=== PATIENT | male | born 1945 | race Caucasian/White ===

== ENCOUNTER → 2018-07-31 12:34 | Outpatient (CLI) | payer MEDICARE, OTHER, SELFPAY ==
--- NOTE | 2018-07-31 12:39 | DI.RAD.S_ITS ---
PROCEDURE: XR CHEST 2V INDICATIONS: COUGH TECHNIQUE: 2 views of the chest were acquired. COMPARISON: [facility], , CHEST 1 VIEW, 03/08/2015, 5:09. FINDINGS: Surgical changes and devices: None. Lungs and pleura: Lungs are clear. No pleural effusions or pneumothorax. Mediastinum: Mediastinal contours are normal. Heart size is mildly prominent. Bones and chest wall: No suspicious bony abnormalities. Soft tissues appear unremarkable. IMPRESSION: No acute pulmonary process. Dictated by: Nicole Balderas M.D. on 07/31/2018 at 15:43 Approved by: Nicole Balderas M.D. on 07/31/2018 at 15:43
== END ==
PROVIDERS: PCP Family Medicine; Visit Provider Family Medicine
DX: R05 Cough (principal)
CPT/HCPCS: 71046

== ENCOUNTER 2018-10-19 06:06 | Inpatient (IN) | payer MEDICARE, OTHER, SELFPAY ==
[2018-10-11 08:19] VITALS: BMI 37.0
[2018-10-19] VITALS (17 sets, daily range): BP systolic 124–181; BP diastolic 58–87; PULSE 64–84; RESP 10–20; TEMP 36.1–37.2; O2SAT 92–98; BMI 35.7
--- NOTE | 2018-10-19 | DI.RAD.S_ITS ---
PROCEDURE: XR CERVICAL SPINE 2V OR 3V INDICATIONS: C3-4, 4-5, 5-6 ACDF WITH POSTERIOR FUSION TECHNIQUE: 2 view(s) of the cervical spine were acquired. COMPARISON: None. FINDINGS: Bones: Postsurgical changes compatible with C3-C6 ACDF and facet spacer placement noted. Orthopedic hardware is intact. No lucencies at the bone hardware interface. There is normal alignment and curvature the fused and nonfused cervical vertebral bodies. Soft tissues: No prevertebral soft tissue swelling. IMPRESSION: Expected postsurgical change for C3-C6 ACDF with cervical spacer placement. Dictated by: Joanne Stanford MD, PhD on 10/19/2018 at 15:12 Approved by: Joanne Stanford MD, PhD on 10/19/2018 at 15:14
[2018-10-19] MEDS: LACTATED RINGERS 1,000 ML 42 ML IV ×2 (07:20→10:07)
--- NOTE | 2018-10-19 07:27 | PC.NURSE ---
Day shift: Pt not on AC unit at this time.
--- NOTE | 2018-10-19 07:41 | PM.PREOP ---
Pre-operative Note Interval Note History & Physical reviewed/Exam performed by Physician: Yes Changes to H&P: No
[2018-10-19] MEDS: CEFAZOLIN 2 GM/100 ML FROZ.PIGGY IV ×2 (07:52→16:47)
--- NOTE | 2018-10-19 08:38 | SUR.OPER ---
Prone on padded OR bed, head in foam head support, gel chest rolls, gel pad under knees, pillow under lower legs, toes free of pressure, arms at patients sides and secured with draw sheet. Tape applied from bilateral shoulders to end of bed with traction per surgeon. Safety belt at low back.
[2018-10-19] MEDS: BUPIVACAINE 0.25% W/ EPI 30 ML VIAL 60 ML INJ (08:50)
[2018-10-19] MEDS: SODIUM CHLORIDE 0.9% 1,000 ML, GENTAMICIN 80 MG IRR (08:52)
[2018-10-19] MEDS: THROMBIN (RECOMBINANT) 5,000 UNIT VIAL 5000 UNIT TOP (10:08)
--- NOTE | 2018-10-19 10:29 | SUR.OPER ---
Supine, head on gel donut. Arms padded with gel pads, tucked at sides, towel roll under shoulders. Safety belt at thigh. Legs uncrossed.
[2018-10-19] MEDS: ACETAMINOPHEN IV 1,000 MG/100 ML VIAL 400 MG IV (10:55)
--- NOTE | 2018-10-19 11:40 | PM.OP.1 ---
Operative Date/Time/Diagnoses Date of procedure: 10/19/18 Time of procedure: 11:40 Pre-op diagnosis: Cervical stenosis with myelopathy Post-op diagnosis: same Procedure & Clinicians Procedure: C3-4, C4-5, C5-6 anterior cervical diskectomy and fusion with cages C3-4, C4-5, C5-6 posterior cervical fusion C3 through C6 posterior cervical instrumentation Iliac crest bone graft aspirate Use of microscope Same procedure as scheduled: Yes Indications: [age] year old male with intractable symptoms from stenosis and myelopathy. They had failed conservative management and requested operative intervention. Risks and benefits of surgery were discussed and appropriate consents were obtained. Surgeon: Fabián Goldman Qualitative Field Coordinator: Yocasta Haley Anesthesia Type: General Operative Notes Findings: None Closure Type: primary Specimen(s): none sent Prosthetic devices, grafts, tissues, transplants, or devices: [place] DTrax posterior cages and screws Zachary MELISSA-C anterior cages Applied: catheter Estimated Blood Loss (mL): 10 Procedure in detail: The patient was brought to the operating room and intubated on the stretcher. Time-out was performed. There were then rolled over to the well-padded prone position on chest rolls. Two views of fluoroscopy were taken to confirm our positioning. The neck was then prepped and draped in the standard sterile fashion. Preoperative antibiotics were given. Using fluoroscopy, we localized for planned incisions. Two small 8 mm horizontal incisions were made over the lateral masses approximately 2 fingers below our planned surgical site. We then spread down and opened up the fascia. Then percutaneously placed our Steinmann pin through the soft tissue into the facet joint at C3-4 under fluoroscopic visualization. We used the reamer to decorticate the lateral masses compromising the facet. A trocar was placed over the Steinmann pin into the facet and then the pin was removed. We used a rasp to decorticate the facet joint itself. We then filled the DTrax cage with Progenex bone graft and impacted it into the facet joint at C3-4 under fluoroscopic guidance. We then took the lateral mass screw and placed it through the cage and then into the lateral mass for the posterior screw fixation. The property management intern was removed and we packed more bone graft down the trocar covering the lateral mass. This was done bilaterally. This completed the instrumented posterior fusion at C3-4. We then went to the next levels at C4-5 and C5-6. The same procedure was performed with preparation, placement of the cage with bone graft, and placement of the screw for bilateral instrumented posterior fusion at C4-5 and C5-6. The wounds were irrigated. The skin was closed and a sterile dressing placed. The patient was then rolled over to the table in the supine position and positioned for the anterior surgery. The arms were tucked and a shoulder roll was placed. The neck and left iliac crest were prepped and draped in the standard sterile fashion. A 3 cm oblique incision was made on the left side of the neck along the skin fold. Bovie was used to split the platysma. We then bluntly dissected a standard anterolateral approach to the precervical fascia. A marker was placed and x-ray taken to confirm our positioning. We then used the Bovie to the subperiosteally lift up the longus colli muscles. Self-retaining retractors were placed. We then placed Albers pins and distracted across the C3-4 disc space. We brought in the microscope. A complete anterior discectomy was performed at C3-4 using a combination of scalpel, curettes, pituitaries, and Kerrison rongeurs. The bur was used to take down the posterior osteophytes as well as decorticate the disc space. We then released the PLL and used the Kerrison to remove any further posterior osteophytes and disc material. At the end a nerve hook could be swept cephalad caudally and out the neural foramen and everything was open. We trialed for our cages. A small stab incision was made over the left iliac crest. We placed a Jamshidi aspiration needle into the iliac crest and aspirated several mL of bone marrow graft. We then took our Zachary LDR MELISSA-C cage and packed it with Progenex, and mixed in the bone marrow aspirate. The cage was then placed into the disc space under fluoroscopic guidance. The 2 locking plates were placed through the cage for fixation. This completed the ACDF at C3-4. We then went to the next level at C4-5 and then C5-6. Again a complete diskectomy was performed including taking down the PLL and posterior osteophytes and disc material. The endplates were prepped with a bur. We trialed and then packed our MELISSA-C cage with the bone graft and then placed into the disc space. The locking plates were placed as well. The superior plate at C5-6 did not go all the way in and bent and was still protruding approximately 1 mm past the cage. The middle section was removed and then we were able to impact in the rest. We then were able to place the inferior plate. This completed the ACDF at C4-5 and C5-6. Final x-rays were taken. The wound was copiously irrigated. There was no bleeding. The carotid was bleeding nicely. The platysma was closed. The superficial skin were closed. A Steri-Strip was placed over the iliac crest incision. Sterile dressings were placed. The patient was then extubated and brought to the recovery room without complication. Complications: none Condition: stable Disposition: PACU Plan for aftercare: Inpatient. Up with therapy.
[2018-10-19] MEDS: hydrOXYzine 50 MG/ML INJ 25 MG IM (12:40)
[2018-10-19] MEDS: HYDROMORPHONE 2 MG INJ 0.5 MG IV ×2 (12:42→12:48)
[2018-10-19] MEDS: LACTATED RINGERS 1,000 ML 125 ML IV (14:52)
--- NOTE | 2018-10-19 14:54 | PT.IIE ---
Current Diagnoses Obstructive sleep apnea (adult) (pediatric) (10/19/18) Unspecified cord compression (10/19/18) Strain of muscle, fascia and tendon at neck level, subsequent encounter (10/19/18) Surgery Performed Operation Date: 10/19/18 07:45 Actual Procedures p C3-4,C4-5,C5-6 Anterior discectomy & Ant/Post Instru. fusion & bone graft - Fabián Goldman MD Surgical History (Last Updated 10/11/18 @ 09:24 by Joanne Navarrete RN) H/O: vasectomy (Acute ~1971) History of arthroscopy of both shoulders (Acute) History of carpal tunnel surgery of right wrist (Acute) Hx of cervical spine surgery (Acute) Hx of hand surgery (Acute) Hx of lumbar discectomy (Acute ~2003) Hx of lumbar discectomy (Acute ~2010) Hx of lumbar discectomy (Acute ~2014) Hx of right inguinal hernia repair (Acute ~1983) S/P foot surgery, right (Acute ~2014) Status post trigger finger release (Acute) Medical History (Last Updated 10/11/18 @ 09:24 by Joanne Navarrete RN) Asthma (Acute) CAD (coronary artery disease) (Acute) CHF (congestive heart failure) (Acute ~2014) CVA (cerebral vascular accident) (Acute ~2010) Cervical radiculopathy (Acute) Chronic back pain (Acute) DJD (degenerative joint disease) (Acute) Depression (Acute) Diverticulitis (Acute) Diverticulosis (Acute) Former smoker (Acute) HLD (hyperlipidemia) (Acute) HTN (hypertension) (Acute) Paroxysmal A-fib (Acute) Pulmonary edema (Acute) Sleep apnea treated with nocturnal BiPAP (Acute) Type II diabetes mellitus (Acute) Physical Therapy Inpatient Evaluation/Re-Eval M1 PT/OT-IP Prior Functional Status Start: 10/19/18 17:34 Freq: NEEDED Status: Active Protocol: Document 10/19/18 14:54 AB (Rec: 10/19/18 17:55 AB [id number]) Medical Review Prior Functional Status Medical History Reviewed Yes Communication able to make needs known Mobility and Gait per spouse: pt is independent with all mobilities and ambulation without AD Social History Household Members spouse Living Arrangements Mobile home Number of Floors (Floors) One Floor Number of Stairs To Enter/Railing? 4 steps R rail ascending Home Environment Standard Height Toilet Walk in Shower Home Equipment Front Wheel Walker Shower Seat with Backrest Hand Held Shower Respiratory Care Assistant Sock Aid Employment Status Retired Additional Social History Comment spouse stated that they positioned a walker towards the back of toilet seat to assist them to push up from the toilet. M2 PT-IP Current Condition Start: 10/19/18 17:34 Freq: NEEDED Status: Active Protocol: Document 10/19/18 14:54 AB (Rec: 10/19/18 17:55 AB [id number]) Physical Therapy Current Condition Current Condition Evaluation Date 10/19/18 Treatment Diagnosis s/p C3-6 anterior and posterior fusion; difficulty in walking Onset Date 10/19/18 Precautions Cervical Spine Precautions Soft Collar for Comfort No Heavy Lifting Log Roll M3 PT-IP Subjective Start: 10/19/18 17:34 Freq: NEEDED Status: Active Protocol: Document 10/19/18 14:54 AB (Rec: 10/19/18 17:55 AB [id number]) Subjective Physical Therapy Visit Type Type Initial Evaluation Visit Start Time 14:54 Visit Stop Time 15:29 Total Visit Minutes 35 Number of PRESCHOOL DIRECTOR Visits 0 Physical Therapy Visit Comments Patient Comments pt c/o increase but wants to try to get up Therapy Pain Assessment Pain When Pain Assessed At Rest Pain Present Pain Present Pain Reported Location neck Intensity 5 Scale Used Numeric (1 - 10) Pain Management Techniques Re-positioning Timing of Activity with Medications M4 PT-IP Mobility and Gait Start: 10/19/18 17:34 Freq: NEEDED Status: Active Protocol: Document 10/19/18 14:54 AB (Rec: 10/19/18 17:55 AB [id number]) PT-Bed Mobility Assessment Rolling Type of Rolling Log Rolling Level of Assist Standby Assistance Supine to Sit Supine to Sit Maximum Assistance PT-Transfer Assessment Sit to and From Stand Sit to and from Stand Moderate Assistance 1 Person Assistance Use of Upper Extremities Equipment Transfer Assistive Device Gait Belt Front Wheeled Walker Orthotic/Prosthetic Devices or Brace: Yes Transfers Transfer Destination Chair Transfer Technique pt ambulated using FWW Transfer Ability Level of Assist Moderate Assistance 1 Person Assistance Use of Upper Extremities Comments Mobility Comments pt completed supine to sit log roll max A and cues. pt was able to sit on EOB SBA. completed sit to stand mod A and cues and was able to ambulate ~ 3 ft forward and back using FWW mod A. pt agreed to sit up on chair and ambulated towards the chair using FWW. Gait Assessment Gait Gait Assistance Required: Moderate Assistance Distance (Feet) 12 Able to Maintain Weight Bearing Status Yes During Gait Assistive Devices Assistive Device Gait Belt Front Wheeled Walker Orthotic/Prosthetic Devices or Brace: Yes Gait Deviations General Gait Pattern Antalgic Decreased Stride Length Decreased Feet Clearance Wide Based Gait Factors Limiting Gait Function Factors Limiting Gait Function Decreased Activity Tolerance Decreased Strength Difficulty Following Directions Limited Range of Motion Pain Poor Balance Poor Safety Awareness Comments Gait Comments pt presents with a waddling gait with decrease step length and slow simone. PT-Balance Assessment Sitting Balance and Reactions Static Sitting Balance Ability Good Dynamic Sitting Balance Ability Good Standing Balance and Reactions Static Standing Balance Ability Fair Dynamic Standing Balance Ability Fair Device Used FWW M5 PT-IP Objective Assessments Start: 10/19/18 17:34 Freq: NEEDED Status: Active Protocol: Document 10/19/18 14:54 AB (Rec: 10/19/18 17:55 AB [id number]) Orientation Orientation/Cognition Level of Alertness Alert Orientation Name Place Situation Language Function Ability Hard of Hearing Gross Range of Motion Lower Extremity ROM Assessment Within Functional Limits Strength Lower Extremity Strength Assessment Within Functional Limits Coordination Assessment Gross Coordination Gross Coordination WNL Sensation Assessment Sensation Gross Sensation WNL Muscle Tone Muscle Tone WNL Yes M6 PT-IP Treatment Start: 10/19/18 17:34 Freq: NEEDED Status: Active Protocol: Document 10/19/18 14:54 AB (Rec: 10/19/18 17:55 AB [id number]) Physical Therapy Treatment Education Education Provided Precautions Weight Bearing Status Post-Op Packet Safety Other Treatments Other Treatment Performed reviewed precautions and log roll bed mobility M7 PT-IP Assessment and Plan Start: 10/19/18 17:34 Freq: NEEDED Status: Active Protocol: Document 10/19/18 14:54 AB (Rec: 10/19/18 17:55 AB [id number]) PT Summary Assessment and Plan Potential Rehabilitation Potential Good Status of Condition at Evaluation Evolving Summary Impairments Pain ROM Strength Balance Coordination Sensation Tone Cognition Bed Mobility Transfers Gait Activity Tolerance Assessment Summary pt requiring max A with bed mobility and mod A with ambulation using FWW. d/c plan depending if spouse will be able to safely assist pt. will conduct caregiver training when appropriate and complete stair climbing training prior to d/c. will have to continue to assess for safe d/c plan. Goals Bed Mobility Goal Standby Assistance Transfer Goal Standby Assistance Front Wheeled Walker Gait Goal Standby Assistance Front Wheel Walker Gait Distance 200 Other Goals up/down 4 steps R rail ascending CGA Days to Meet Goals 5 Frequency of Treatment Frequency Of Treatment Twice a Day Treatment Plan Physical Therapy Treatment Plan Bed Mobility Training Transfer Training Gait Training Therapeutic Exercise Balance Retraining Post Op Education Discharge Planning Hot or Cold Pack Neuromuscular Re-ed Coordination Retraining Manual Therapy Recommendations To Nursing Amount of Assist Needed 1 Person Assist Discharge Recommendations PT Discharge Recommendations Home with 05/01 Assist Home Health SNF Rehab Other Discharge Recommendations depending on progress: SNF vs home and homehealth services
[2018-10-19] MEDS: HYDROMORPHONE 0.5 MG INJ IV ×2 (15:01→19:56)
--- NOTE | 2018-10-19 16:39 | ST.IPSCREEN ---
Order received for swallow screen post ACDF. Pt had just come to room from PACU. Pt asleep. Will F/U tomorrow.
[2018-10-19] MEDS: OXYCODONE IR 5 MG TABLET 10 MG PO ×2 (16:41→22:22)
[2018-10-19] MEDS: INSULIN ASPART 100 UNIT/ML INSULN PEN SUBCUT (17:24)
[2018-10-19] MEDS: hydrOXYzine pamoate 25 MG CAPSULE PO (19:58)
[2018-10-19] MEDS: buPROPion SR 150 MG TAB PO (22:11)
[2018-10-19] MEDS: ATORVASTATIN 20 MG TABLET 80 MG PO (22:11)
[2018-10-19] MEDS: DOCUSATE 100 MG CAPSULE PO (22:12)
[2018-10-19] MEDS: CELECOXIB 200 MG CAPSULE PO (22:12)
[2018-10-19] MEDS: FENOFIBRATE 160 MG TABLET PO (22:13)
[2018-10-19] MEDS: METOPROLOL IR 50 MG TABLET PO (22:23)
[2018-10-19] MEDS: INSULIN GLARGINE 100 UNIT/ML 3ML PEN 70 UNIT SUBCUT (22:24)
[2018-10-19] MEDS: SENNOSIDES 8.6 MG TABLET 17.2 MG PO (22:50)
[2018-10-19] MEDS: LISINOPRIL 20 MG TABLET PO (22:50)
--- NOTE | 2018-10-19 22:55 | PC.NURSE ---
Pt alert/oriented. Soft collar in place. Posterior dsg w/some dried drainage noted. Front dsg CDI. Pt having pain issues this evening. Med several times w/oxycodone ans dilaudid as per orders w/minimal relief. IV LR @ 125cc/Hr infusing via pump into the RFA w/o incidnece Lungs clear, SpO2 96% 2L. Stable post op course. Continue w/plan of care
[2018-10-20] VITALS (9 sets, daily range): BP systolic 124–136; BP diastolic 59–76; PULSE 67–83; RESP 16–18; TEMP 36.6–37.2; O2SAT 91–99
[2018-10-20] MEDS: LACTATED RINGERS 1,000 ML 125 ML IV (01:06)
[2018-10-20] MEDS: CEFAZOLIN 2 GM/100 ML FROZ.PIGGY IV (01:06)
[2018-10-20] MEDS: hydrOXYzine pamoate 25 MG CAPSULE PO ×4 (01:06→23:51)
[2018-10-20] MEDS: HYDROMORPHONE 0.5 MG INJ IV ×3 (01:06→23:51)
[2018-10-20] MEDS: ONDANSETRON 4 MG/2 ML INJ IV (01:10)
[2018-10-20] MEDS: OXYCODONE IR 5 MG TABLET 10 MG PO ×4 (02:35→14:15)
--- NOTE | 2018-10-20 08:00 | PM.PNPO.1 ---
Subjective Date Patient Seen: 10/20/18 Time Patient Seen: 08:00 Interval history: Having a fair amount of pain at the base of the neck and over towards the right shoulder. No pain going down the arms Exam Vital Signs (past 8 hours): - 10/20/18 05:25 Temperature 98.9 F Pulse Rate 83 Respiratory Rate 16 Blood Pressure 131/59 L Pulse Oximetry 96 Oxygen Delivery Method Room Air Oxygen Flow Rate 0 Const Orientation: alert and oriented x3 Back/Spine/Pelvis Other: Anterior dressing CDI. Moderate drainage on posterior dressing. 5/5 motor both upper extremities. Assessment & Plan Post-op Postoperative Procedures Operation Date: 10/19/18 07:45 Actual Procedures Side Surgeon p C3-4,C4-5,C5-6 Anterior discectomy & Ant/Post Instru. fusion & bone graft Fabián Goldman MD He is stable after his 3 level from back cervical fusion. Mobilize today with physical therapy. Anticipate probable discharge home tomorrow. Quality VTE Deep Vein Thrombosis/Pulmonary Embolism Present on Admission: No
[2018-10-20] MEDS: INSULIN ASPART 100 UNIT/ML INSULN PEN 35 UNIT SUBCUT ×2 (08:23→14:07)
[2018-10-20] MEDS: INSULIN ASPART 100 UNIT/ML INSULN PEN SUBCUT (08:25)
[2018-10-20] MEDS: buPROPion SR 150 MG TAB PO ×2 (08:31→21:08)
[2018-10-20] MEDS: LISINOPRIL 20 MG TABLET PO ×2 (08:31→21:09)
[2018-10-20] MEDS: DOCUSATE 100 MG CAPSULE PO ×2 (08:31→21:08)
[2018-10-20] MEDS: CELECOXIB 200 MG CAPSULE PO ×2 (08:31→21:08)
[2018-10-20] MEDS: METOPROLOL IR 50 MG TABLET PO ×2 (08:34→21:08)
[2018-10-20] MEDS: LORATADINE 10 MG TABLET PO (08:34)
--- NOTE | 2018-10-20 10:36 | PT.IPTN ---
Current Diagnoses Obstructive sleep apnea (adult) (pediatric) (10/19/18) Unspecified cord compression (10/19/18) Strain of muscle, fascia and tendon at neck level, subsequent encounter (10/19/18) Surgery Performed Operation Date: 10/19/18 07:45 Actual Procedures p C3-4,C4-5,C5-6 Anterior discectomy & Ant/Post Instru. fusion & bone graft - Fabián Goldman MD Physical Therapy Treatment Note M2 PT-IP Current Condition Start: 10/19/18 17:34 Freq: NEEDED Status: Active Protocol: Document 10/19/18 14:54 AB (Rec: 10/19/18 17:55 AB [id number]) Physical Therapy Current Condition Current Condition Evaluation Date 10/19/18 Treatment Diagnosis s/p C3-6 anterior and posterior fusion; difficulty in walking Onset Date 10/19/18 Precautions Cervical Spine Precautions Soft Collar for Comfort No Heavy Lifting Log Roll M3 PT-IP Subjective Start: 10/19/18 17:34 Freq: NEEDED Status: Active Protocol: Document 10/20/18 10:25 SA (Rec: 10/20/18 10:36 SA [id number]) Subjective Physical Therapy Visit Type Type Treatment Note Visit Start Time 09:42 Visit Stop Time 10:10 Total Visit Minutes 28 Notes Pt with present for PT. Number of COMMUNICATIONS SPECIALIST Visits 1 Physical Therapy Visit Comments Patient Comments Pt reports decreased cervical pain today, agreeable to PT. Patient Goals To return home with . Therapy Pain Assessment Pain When Pain Assessed During Mobility Pain Present Pain Present Pain Reported Location neck Intensity 2 Scale Used Numeric (1 - 10) Pain Management Techniques Re-positioning Timing of Activity with Medications M4 PT-IP Mobility and Gait Start: 10/19/18 17:34 Freq: NEEDED Status: Active Protocol: Document 10/20/18 10:25 SA (Rec: 10/20/18 10:36 SA [id number]) PT-Transfer Assessment Sit to and From Stand Sit to and from Stand Minimal Assistance Use of Upper Extremities Equipment Transfer Assistive Device Gait Belt Front Wheeled Walker Orthotic/Prosthetic Devices or Brace: Yes Transfers Transfer Destination Bed Chair Transfer Technique pt ambulated using FWW Transfer Ability Level of Assist Contact Guard Assistance 1 Person Assistance Comments Mobility Comments Repeated sit to stands from chair with Min A - CGA. Pt transfers with FWW and CGA, Soft collar in place and education for precautions and safety. Gait Assessment Gait Gait Assistance Required: Contact Guard Assist 1 Person Assist Distance (Feet) 60 Able to Maintain Weight Bearing Status Yes During Gait Assistive Devices Assistive Device Gait Belt Front Wheeled Walker Orthotic/Prosthetic Devices or Brace: Yes Gait Deviations General Gait Pattern Antalgic Decreased Stride Length Factors Limiting Gait Function Factors Limiting Gait Function Decreased Activity Tolerance Decreased Strength Comments Gait Comments Pt with impoved gait quality and decreased pain levels. Several short walks of 15-20 feet, pt able to manage FWW safely and increased step length, CGA provided and no LOB. Stair Climbing Assessment Evaluation Level of Assist On Stairs Contact Guard Assistance Devices Stair Climbing Assistive Devices Left Railing Right Railing Technique/Endurance Stair Climbing Direction Ascend and Descend Stair Climbing Technique Step Over Step Number of Steps Climbed 3 Query Text: Stair Climbing Set # Repetitions (reps) 1 Comments Stair Climbing Comments Pt with step through gait pattern and use of B rails, CGA and min cues for safe technique. M5 PT-IP Objective Assessments Start: 10/19/18 17:34 Freq: NEEDED Status: Active Protocol: Document 10/19/18 14:54 AB (Rec: 10/19/18 17:55 AB [id number]) Orientation Orientation/Cognition Level of Alertness Alert Orientation Name Place Situation Language Function Ability Hard of Hearing Gross Range of Motion Lower Extremity ROM Assessment Within Functional Limits Strength Lower Extremity Strength Assessment Within Functional Limits Coordination Assessment Gross Coordination Gross Coordination WNL Sensation Assessment Sensation Gross Sensation WNL Muscle Tone Muscle Tone WNL Yes M6 PT-IP Treatment Start: 10/19/18 17:34 Freq: NEEDED Status: Active Protocol: Document 10/20/18 10:25 SA (Rec: 10/20/18 10:36 [id number]) Physical Therapy Treatment Exercises Exercises Ankle Pumps Gluteal Sets Education Education Provided Precautions Weight Bearing Status Post-Op Packet Safety Other Treatments Other Treatment Performed 02 sats ranged from 87-93% on RA with activity. Pt recovered quickly with 02 dropping to 87% with ambulaiton. M7 PT-IP Assessment and Plan Start: 10/19/18 17:34 Freq: NEEDED Status: Active Protocol: Document 10/20/18 10:25 SA (Rec: 10/20/18 10:36 [id number]) PT Summary Assessment and Plan Summary Assessment Summary Pt progressing well with gait and stair management. 02 levels safe on RA with activity. present and helpful during treatment, anticipate d/c home with spouse to assist. Frequency of Treatment Frequency Of Treatment Twice a Day Treatment Plan Physical Therapy Treatment Plan Bed Mobility Training Transfer Training Gait Training Therapeutic Exercise Balance Retraining Post Op Education Discharge Planning Hot or Cold Pack Neuromuscular Re-ed Coordination Retraining Manual Therapy Recommendations To Nursing Amount of Assist Needed 1 Person Assist Discharge Recommendations PT Discharge Recommendations Home with 05/01 Assist Home Health [phone]
--- NOTE | 2018-10-20 11:19 | ST.IPSCREEN ---
Pt was screened for dysphagia during breakfast. He was tolerating regular diet and thin liquids. Education was provided to the pt and his orally and in writing RE potential effects of ACDF surgery on swallow and voice function. Both pt and verbalized and demonstrated understanding with their comments. No further swallow evaluation is warranted at this time. Pt's nurse in agreement. Will DC orders.
[2018-10-20] MEDS: SENNOSIDES 8.6 MG TABLET 17.2 MG PO (12:17)
--- NOTE | 2018-10-20 13:32 | CM.DANOTE ---
Per Ortho PA, pt tolerated procedure well but still having pain management issues and some anxiety but may be stable for d/c home tomorrow pending further PT. Per PT, pt has made good progress from yesterday and has completed some CG training with spouse. Recommending Home with HH vs outpt pending progress. SW met bedside with pt and spouse and explained role and both were very talkative and confirmed that they live at home in [place] and pt is Independent with ADL's at baseline and has a hx of multiple back surgeries and they are well versed in care at home. Pt is established with an outpt PT office near their home and currently do not anticipate HH needs but likely will return to outpt therapy at d/c pending his pain levels. Pt and spouse do not see any issues with transportation and being homebound at this time. 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 Pt and spouse state that they typically live in their house most of the year but like to stay in their RV in the summer as temperatures warm up. Pt has local supportive family who live a few houses down from them who could assist also if needed. Plan: SW to follow after further PT to determine home with HH vs outpt PT. Pt and spouse currently planning on outpt PT at discharge. FUNMI Shen Discharge Planning/Care Management Advanced directive, confirm from FAMILY Start: 10/19/18 13:47 Freq: Q24H Status: Active Protocol: Document 10/19/18 13:51 YAD (Rec: 10/19/18 14:01 YAD [id number]) Advance Directive, confirm on record Time 14:01 Person contacted Spouse. Copy in chart but the original is not noterized. Pt is Full code Copy received Yes Advanced directive available on record No CM Discharge Assessment Start: 10/20/18 13:29 Freq: Status: Active Protocol: Document 10/20/18 13:30 BF (Rec: 10/20/18 13:32 BF [id number]) Discharge Planning Assessment Assigned Medical Case Manager FUNMI Hankins DPOA/Assigned Designee Name spouse Advance Directives? No Advance Directives on File No History Provided By Patient Significant Other Medical Record Has Patient been admitted in last 30 No days? Prior Living Arrangements Mobile home Household Members spouse Type of transporation used prior to Drives own vehicle admit Comment Lives part of the year in their home and part of the year in their RV. Independent with ADL's Yes Is patient alert and oriented? Yes Needs Assistance With Managing Medications Home Chores / Shopping Caregiver for Another No Community Services used prior to Physical Therapy admission: Occupational Therapy Comment outpt PT/OT located near their home in [place] Patient/Family Preference Home with Home Health Comment Home with HH vs outpt PT Barriers to Discharge No Discharge Plan Home Community Services Physical Therapy Transportation Arrangement Spouse bedside and likely can provide transport at d/c. Additional Comment Waiting for further PT to determine HH vs outpt Whiteboard Updated in Patient Room with Yes name and ext. # of Medical Case Manager Review Status In Process Please Provide Date Initial DC 10/20/18 Assessment Was Performed Next Review Type Continued Stay Review Pre-Anesthesia Assessment Start: 10/11/18 08:19 Freq: Status: Complete Protocol: Document 10/11/18 08:19 CAB (Rec: 10/11/18 09:54 CAB [id number]) Pre-Anesthesia Assessment PAC Comment PCP, Cardiology clearances and lovenox bridging instructions scanned to record. 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 Outside labs/ECG scanned to record Primary Care Provider Miguel Sanchez Medical Clearance Received Yes Seen Specialist in Last 12 Months Yes Specialist Seen Boat Ride Operator Orthopedist Primary Language [place] Justice Required No Height 170.18 cm Weight 107.501 kg Body Mass Index (BMI) 37.0 Hearing Ability Hard of Hearing Use of Hearing Aid Visual Assist Glasses Dentition Type Teeth, Natural Present Teeth, Missing Barriers to Learning Auditory Memory Other Aids Yes: BiPAP Comment Short term memory loss, expressive aphasia, missing all molars Hx Anesthesia Reactions No Hx Family Anesthesia Reaction No Hx Malignant Hyperthermia No Hx Blood Transfusions No Anesthesia Review Requested No Generator Mechanic No alcohol intake current alcohol intake frequency a few times a month Smoking Status Former smoker Tobacco type cigarettes how long ago did patient quit smoking Quit 1982 Smoking pack-years 20 Substance Use Type does not use Pain Present Pain Reported Musculoskeletal Symptoms Joint Pain Limited Range of Motion Neck Pain Numbness Radiating Pain into Limb History of Falling (Recent or History of Yes ) Patient is completely paralyzed or No completely immobile Mental Status Oriented to own ability Does patient have HERNANDEZ/SOB Yes: w/heavy exertion Hx Sleep Apnea Yes CPAP/BIPAP use prescribed and used routinely Will Bring CPAP/BIPAP DOS Yes Currently Taking a Beta Marcelina Yes: Metoprolol Can You Climb a Flight of Stairs Without Yes SOB Hx Chest Pain No Hx SOB Yes: w/heavy exertion Hx Syncope or Dizziness No Anti-Coagulant Therapy Yes: Bozena-pt will hold 5/3 Lovenox bridging 10/16 per Cardiology Has a Boat Ride Operator Yes: Dr. Aranda-[facility] -visit 09/14 Cardiac Testing Yes: ECHO, perfusion study @[facility] Hx Pacemaker/ICD No Pacemaker Rep Required? No Cardiac Clearance Received Yes Diet Type At Home Regular dysphagia No Urinary Catheter Present No Hx Urinary Self Catheterization No Diabetes Yes: Pt checks blood sugars once a night HgbA1C 6.6 Date 09/20/18 Presence of External or Internal Medical Yes: BiPAP Devices Have you traveled outside the [facility] in the last 30 days? Marital Status Lives With spouse Prior Living Arrangements Mobile home Support System Child/Children Spouse Does the Patient Have Assistance After Yes Surgery Patient Discharge Plan Description Return Home Comment Pt advised 2 day length of stay per surgeon's office Feels Safe in Current Environment Yes Been Physically Hurt or Threatened By a No Person in Current Environment Do you have thoughts of harming yourself None or others? Are you currently considering suicide? No Do you have a plan to hurt yourself or No Plan others? Comment Distant history of suicidal ideation, under control per patient Do You Have Any Spiritual Beliefs That No May Affect Your HC Choices? Do You Have Any Cultural Practices That No May Affect Your HC Choices? Comment Latter Day Who Can We Speak to About Patient's Care Family, friends Identifying Code for Release of Patient Declines to issue Information Health Care Proxy/Next of Kin Celia () Health Care Proxy Emergency Contact Name Celia () Emergency Contact Advance Directives? Yes Advance Directives on File Yes PAC Instructions Bring CPAP/BIPAP Medications to take/avoid Nasal antibiotic No ETOH/petroleum product on skin DOS NPO Post-op transportation Pre-surgical wash Sturdy shoes/comfortable clothes Do not bring valuables and remove jewelry Comment Surg # given for any questions /concerns regarding blood sugars dos
--- NOTE | 2018-10-20 14:15 | PT.IPTN ---
Current Diagnoses Obstructive sleep apnea (adult) (pediatric) (10/19/18) Unspecified cord compression (10/19/18) Strain of muscle, fascia and tendon at neck level, subsequent encounter (10/19/18) Surgery Performed Operation Date: 10/19/18 07:45 Actual Procedures p C3-4,C4-5,C5-6 Anterior discectomy & Ant/Post Instru. fusion & bone graft - Fabián Goldman MD Physical Therapy Treatment Note M2 PT-IP Current Condition Start: 10/19/18 17:34 Freq: NEEDED Status: Active Protocol: Document 10/19/18 14:54 AB (Rec: 10/19/18 17:55 AB [id number]) Physical Therapy Current Condition Current Condition Evaluation Date 10/19/18 Treatment Diagnosis s/p C3-6 anterior and posterior fusion; difficulty in walking Onset Date 10/19/18 Precautions Cervical Spine Precautions Soft Collar for Comfort No Heavy Lifting Log Roll M3 PT-IP Subjective Start: 10/19/18 17:34 Freq: NEEDED Status: Active Protocol: Document 10/20/18 14:08 SA (Rec: 10/20/18 14:15 SA [email or web address]) Subjective Physical Therapy Visit Type Type Treatment Note Visit Start Time 13:18 Visit Stop Time 13:38 Total Visit Minutes 20 Notes Pt with present for PT. Physical Therapy Visit Comments Patient Comments Pt agreeable to PT this AM. Patient Goals To return home with . Therapy Pain Assessment Pain When Pain Assessed During Mobility Pain Present Pain Present Pain Reported Location neck Intensity 2 Scale Used Numeric (1 - 10) Pain Management Techniques Re-positioning Timing of Activity with Medications M4 PT-IP Mobility and Gait Start: 10/19/18 17:34 Freq: NEEDED Status: Active Protocol: Document 10/20/18 14:08 SA (Rec: 10/20/18 14:15 [id number]) PT-Bed Mobility Assessment Rolling Type of Rolling Log Rolling Level of Assist Standby Assistance Supine to Sit Supine to Sit Minimal Assistance Sit to Supine Sit to Supine Minimal Assistance Scooting Scooting to Edge of Bed Minimal Assistance Scooting Up and Down in Bed Minimal Assistance PT-Transfer Assessment Sit to and From Stand Sit to and from Stand Contact Guard Assistance Equipment Transfer Assistive Device Gait Belt Front Wheeled Walker Orthotic/Prosthetic Devices or Brace: Yes Transfers Transfer Destination Bed Chair Transfer Technique pt ambulated using FWW Transfer Ability Level of Assist Contact Guard Assistance 1 Person Assistance Comments Mobility Comments Pt Min A with bed mobility and CGA with transfers, uses FWW safely and keeps soft collar on without complaints. 02 sats 90-93% on RA with mobility. Gait Assessment Gait Gait Assistance Required: Standby Assistance Contact Guard Assist 1 Person Assist Distance (Feet) 175 Able to Maintain Weight Bearing Status Yes During Gait Assistive Devices Assistive Device Gait Belt Front Wheeled Walker Orthotic/Prosthetic Devices or Brace: Yes Gait Deviations General Gait Pattern Antalgic Decreased Stride Length Factors Limiting Gait Function Factors Limiting Gait Function Decreased Activity Tolerance Decreased Strength Comments Gait Comments Gait training in daigle with increased gait distance and gait quality.Pt denies dizziness of SOB, states his neck pain does not increase with ambulation. PT-Balance Assessment Sitting Balance and Reactions Static Sitting Balance Ability Good Dynamic Sitting Balance Ability Good M5 PT-IP Objective Assessments Start: 10/19/18 17:34 Freq: NEEDED Status: Active Protocol: Document 10/19/18 14:54 AB (Rec: 10/19/18 17:55 AB [id number]) Orientation Orientation/Cognition Level of Alertness Alert Orientation Name Place Situation Language Function Ability Hard of Hearing Gross Range of Motion Lower Extremity ROM Assessment Within Functional Limits Strength Lower Extremity Strength Assessment Within Functional Limits Coordination Assessment Gross Coordination Gross Coordination WNL Sensation Assessment Sensation Gross Sensation WNL Muscle Tone Muscle Tone WNL Yes M6 PT-IP Treatment Start: 10/19/18 17:34 Freq: NEEDED Status: Active Protocol: Document 10/20/18 14:08 (Rec: 10/20/18 14:15 [id number]) Physical Therapy Treatment Exercises Exercises Ankle Pumps Gluteal Sets Education Education Provided Precautions Weight Bearing Status Post-Op Packet Safety Other Treatments Other Treatment Performed Standing balance and postural correction at FWW. Eduction with pt's for equipment and mobility at home. M7 PT-IP Assessment and Plan Start: 10/19/18 17:34 Freq: NEEDED Status: Active Protocol: Document 10/20/18 14:08 SA (Rec: 10/20/18 14:15 [id number]) PT Summary Assessment and Plan Summary Assessment Summary Pt continues to progress, still fatigues rapidly with activity. 02 sats 88-93% with activity on RA this PM. Probable d/c home with tomorrow. Frequency of Treatment Frequency Of Treatment Twice a Day Treatment Plan Physical Therapy Treatment Plan Bed Mobility Training Transfer Training Gait Training Therapeutic Exercise Balance Retraining Post Op Education Discharge Planning Hot or Cold Pack Neuromuscular Re-ed Coordination Retraining Manual Therapy Recommendations To Nursing Amount of Assist Needed 1 Person Assist Discharge Recommendations PT Discharge Recommendations Home with 05/01 Assist Home Health
--- NOTE | 2018-10-20 14:16 | PC.NURSE ---
Am shift Pt is A/o x4, Spo2 98% 2L, will attempt RA trial today as Pt doesnt use at home. Home CPAP mask is hard to fit over dressing, Pt is up to ambulate with PT. Requests koch removal. Done. Tolerating diet well, Speech into see Pt and d/c from services. Pain is better controlled using routinely given oxycodone and vistaril. No breakthrough dilaudid given this shift. Ambulating in daigle with PT. Posterior dressing changed. IVF SL.
--- NOTE | 2018-10-20 15:19 | OT.IP.EVAL ---
Current Diagnoses Obstructive sleep apnea (adult) (pediatric) (10/19/18) Unspecified cord compression (10/19/18) Strain of muscle, fascia and tendon at neck level, subsequent encounter (10/19/18) Surgery Performed Operation Date: 10/19/18 07:45 Actual Procedures p C3-4,C4-5,C5-6 Anterior discectomy & Ant/Post Instru. fusion & bone graft - Fabián Goldman MD Past Medical History (Last Updated 10/11/18 @ 09:24 by Joanne Navarrete RN) Asthma (Acute) CAD (coronary artery disease) (Acute) CHF (congestive heart failure) (Acute ~2014) CVA (cerebral vascular accident) (Acute ~2010) Cervical radiculopathy (Acute) Chronic back pain (Acute) DJD (degenerative joint disease) (Acute) Depression (Acute) Diverticulitis (Acute) Diverticulosis (Acute) Former smoker (Acute) HLD (hyperlipidemia) (Acute) HTN (hypertension) (Acute) Paroxysmal A-fib (Acute) Pulmonary edema (Acute) Sleep apnea treated with nocturnal BiPAP (Acute) Type II diabetes mellitus (Acute) Surgical History (Last Updated 10/11/18 @ 09:24 by Joanne Navarrete RN) H/O: vasectomy (Acute ~1971) History of arthroscopy of both shoulders (Acute) History of carpal tunnel surgery of right wrist (Acute) Hx of cervical spine surgery (Acute) Hx of hand surgery (Acute) Hx of lumbar discectomy (Acute ~2003) Hx of lumbar discectomy (Acute ~2010) Hx of lumbar discectomy (Acute ~2014) Hx of right inguinal hernia repair (Acute ~1983) S/P foot surgery, right (Acute ~2014) Status post trigger finger release (Acute) Occupational Therapy Inpatient Evaluation/Re-Eval M1 PT/OT-IP Prior Functional Status Start: 10/19/18 17:34 Freq: NEEDED Status: Active Protocol: Document 10/20/18 15:19 RICARDO (Rec: 10/21/18 08:45 RICARDO [id number]) Medical Review Prior Functional Status Medical History Reviewed Yes Diet/Fluid Consistency Regular Communication WNL Mobility and Gait Pt stated is independent with all mobilities and ambulation without AD Activities of Daily Living and IADL's Pt stated he is independent with all self care, manages his own medications and he normally makes breakfast. 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 Both drive. Prior Functional Level (Other details) Pt has multiple family members who live close by and can assist PRN. Social History Household Members spouse Living Arrangements Mobile home Number of Floors (Floors) One Floor Number of Stairs To Enter/Railing? 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 Pt/ use FWW over toilet as toilet safety frame. M2 OT-IP Current Condition Start: 10/21/18 08:29 Freq: Status: Active Protocol: Document 10/20/18 15:19 PJM (Rec: 10/21/18 08:45 [facility] [id number]) Occupational Therapy Current Condition Current Condition Evaluation Date 10/20/18 Treatment Diagnosis decreased self care, mobility s/p anterior/posterior C3-6 fusion Diagnosis Onset Date 10/19/18 Post Operative Precautions Cervical Spine Precautions Soft Collar for Comfort Soft Collar at all Times Rigid Collar No Heavy Lifting Log Roll M3 OT- IP Subjective and Pain Start: 10/21/18 08:29 Freq: Status: Active Protocol: Document 10/20/18 15:19 PJM (Rec: 10/21/18 08:45 [facility] [id number]) OT- Subjective Occupational Therapy Visit Type Type Initial Evaluation Visit Start Time 14:58 Visit Stop Time 15:19 Total Visit Minutes 21 Notes here this session. Occupational Therapy Visit Comments Patient Comments I have had neck surgery and several back surgeries before this one. Patient/Caregiver Goals Pt would like to be able to walk for exercise and have less pain during daily tasks. OT Pain Assessment Pain When Pain Assessed After Treatment Pain Present Pain Present Pain Reported Location neck Intensity 5 Description Aching Acute Management Techniques Distraction Timing of Activity with Medications M4 OT- IP ADL's Start: 10/21/18 08:29 Freq: Status: Active Protocol: Document 10/20/18 15:19 PJM (Rec: 10/21/18 08:45 [facility] [id number]) OT FYY-Wzxy-Gmzafas General Evaluation Self-Feeding Ability Independent Comments OT Self-Feeding Comments pt aware of eating soft foods OT ADL-Grooming General Evaluation Grooming Ability Standby Assistance Areas Needing Assistance Face Washing Comments OT Grooming Comments after set up, pt declines out of bed this session due to pain level OT ADL-Oral Care Comments Oral Care Comments pt declines OT ADL-Dressing Assistive Devices Dressing Assistive Devices Long Handled Shoe Horn Tar Leveler Sock Aid Comments OT Dressing Comments Pt familiar with adapted ADL techniques and has rental clerk tool and equipment, sock aid long shoe horn that he uses daily at home for lower body dressing. OT ADL-Toileting Comments OT Toileting Comments did not occur this session OT ADL-Bathing Bathing Type Bathing Type Shower Devices Bathing Equipment Long Handled Sponge or Kick Plate Installer Held Shower Sprayer Shower Chair with Arms Comments OT Bathing Comments can provide SBA PRN at home, pt has long bath sponge M5 OT- IP IADL's Start: 10/21/18 08:29 Freq: Status: Active Protocol: Document 10/20/18 15:19 PJ (Rec: 10/21/18 08:45 [facility] [id number]) OT-Instrumental Activities of Daily Living Deficits IADL Deficits Identified Deficits Home Safety Awareness Awareness of Need for Assistance at Home Good Awareness Ability to Problem Solve Emergency Able to Problem Solve Situations Medication Management Medication Management No Deficits Identified Money Management Money Management Caregiver Provides Assistance Money Management Comments manages finances at home Meal Preparation Meal Preparation Caregiver Provides Assist Meal Preparation Comments to assist Cnc Milling Machine Operator Cnc Milling Machine Operator Caregiver Provides Assist Cnc Milling Machine Operator Comments to assist Driving Driving Caregiver Provides Assist Driving Comments to assist M6 OT- IP Functional Cognition Start: 10/21/18 08:29 Freq: Status: Active Protocol: Document 10/20/18 15:19 PJ (Rec: 10/21/18 08:45 [facility] [id number]) Cognitive Factors Limiting Selfcare Function Cognitive Ability Level of Alertness Alert Patient Orientation Name Age Birthday Month Date Year Day of Week Place Situation Attention Span Ability Capable of Focused Attention Capable of Sustained Attention Ability to Follow Commands Able to Follow One Step Commands Memory Description No Deficits Noted Safety Awareness No Deficits Noted Cognitive Comments Cognitive Assessment Comments Pt familiar with precautions and adapted ADL skills from previous surgeries. OT- Vision and Hearing OT- Hearing Assessment OT- Hearing Assessment WFL OT- Vision Assessment Visual Acuity WFL Glasses All The Time Vision Assessment Comments pt denies any recent vision changes M7 OT- IP Mobility and Balance Start: 10/21/18 08:29 Freq: Status: Active Protocol: Document 10/20/18 15:19 PJM (Rec: 10/21/18 08:45 PJ [email or web address]) OT-Transfer Assessment Comments Mobility Comments pt declined OOB this session due to fatigue and decreased pain control OT- Gait Assessment Comments Gait Ability Comments see P.T. notes OT- Balance Assessment Comments Other Balance Tests/Deviations/Treatment see P.T. notes : M8 OT- IP Objective Assessments Start: 10/21/18 08:29 Freq: Status: Active Protocol: Document 10/20/18 15:19 PJM (Rec: 10/21/18 08:45 PJ [id number]) OT Gross Range of Motion Upper Extremity Range of Motion Assessment Within Functional Limits ROM Impairments shoulder motion tested to 90 degrees due to recent C spine surgery and pain OT Strength Upper Extremity Strength Assessment Within Functional Limits Hand Household Appliances Service Technician Strength Hand Dominance Right OT- Coordination Assessment Comments Coordination Comments BUE WFL for self care OT-Muscle Tone Assessment Muscle Tone WNL Yes OT Sensation Assessment Comments Summary Comments Pt reports numbness in thumb, index and middle fingers in B hands is now gone since surgery. Edema Edema Absent M9 OT- IP Assessment and Plan Start: 10/21/18 08:29 Freq: Status: Active Protocol: Document 10/20/18 15:19 PJM (Rec: 10/21/18 08:45 PJ [id number]) OT Summary Assessment and Plan Potential Rehabilitation Potential Good Analytic Complexity at Evaluation Low Summary OT Impairments Pain Assessment Summary Low complexity OT assessment completed with emphasis on C spine precautions. Pt familiar with adapted ADL techniques and has all necessary equipt from multiple previous spine surgeries. Pt still having some difficulty with pain control and requesting long acting pain medication. RN notified. Supportive can provide assist with drill presser at home. Pt does not feel he needs any additional OT services at this time. Anticipate pt will dc home when medically stable and clears P.T. Frequency of Treatment Frequency Of Treatment Discharge Discharge Recommendations OT Discharge Recommendations Home with 05/01 Assist
[2018-10-20] MEDS: HYDROCODONE/ACET 5/325 TABLET 2 TAB PO ×2 (17:52→21:53)
[2018-10-20] MEDS: ATORVASTATIN 20 MG TABLET 80 MG PO (21:08)
[2018-10-20] MEDS: FENOFIBRATE 160 MG TABLET PO (21:10)
[2018-10-20] MEDS: INSULIN GLARGINE 100 UNIT/ML 3ML PEN 70 UNIT SUBCUT (21:13)
--- NOTE | 2018-10-20 21:23 | PC.NURSE ---
A&OX4. desats when laying down to 82% RA. pt now on 2L O2 95%. when sitting up 92-93%RA. pt uses bipap, but unable to tolerate due to straps causing pain on back of his neck. ice packs and norco for pain. SBA to the BR. call light in reach.
[2018-10-21 00:29] VITALS: BP 147/74; PULSE 72; RESP 18; TEMP 36.7; O2SAT 95
[2018-10-21 00:45] VITALS: O2SAT 98
[2018-10-21 01:15] VITALS: O2SAT 95
[2018-10-21] MEDS: HYDROCODONE/ACET 5/325 TABLET 2 TAB PO ×2 (02:23→10:34)
--- NOTE | 2018-10-21 05:49 | PC.NURSE ---
Assumed care of pt at 2300 on 10/20/18. Pt awake resting in bed during bedside hand-off. Up to chair. Drsgs to ant and post neck c/d/i. Soft collar on. CMS+. CPOX 2L NC sats 98%. R.T. notified to set-up CPAP. Able to titrate down to 1L bleed in to CPAP. Analgesics per aug. Calling appropriately for needs.
[2018-10-21] MEDS: hydrOXYzine pamoate 25 MG CAPSULE PO (06:11)
[2018-10-21] MEDS: HYDROCODONE/ACET 5/325 TABLET 1 TAB PO (06:11)
[2018-10-21 07:54] VITALS: BP 131/79; PULSE 89; RESP 20; TEMP 36.7; O2SAT 96
[2018-10-21] MEDS: buPROPion SR 150 MG TAB PO (08:29)
[2018-10-21 08:30] VITALS: BP 131/79; PULSE 89
[2018-10-21] MEDS: CELECOXIB 200 MG CAPSULE PO (08:30)
[2018-10-21] MEDS: LISINOPRIL 20 MG TABLET PO (08:30)
[2018-10-21] MEDS: DOCUSATE 100 MG CAPSULE PO (08:30)
[2018-10-21] MEDS: METOPROLOL IR 50 MG TABLET PO (08:31)
[2018-10-21] MEDS: LORATADINE 10 MG TABLET PO (08:31)
[2018-10-21] MEDS: INSULIN ASPART 100 UNIT/ML INSULN PEN SUBCUT (08:32)
[2018-10-21] MEDS: INSULIN ASPART 100 UNIT/ML INSULN PEN 35 UNIT SUBCUT (08:35)
[2018-10-21] MEDS: SENNOSIDES 8.6 MG TABLET 17.2 MG PO (08:37)
[2018-10-21 09:03] VITALS: O2SAT 96
--- NOTE | 2018-10-21 10:13 | PM.DS.1 ---
History of Present Illness Date Patient Seen: 10/21/18 Chief complaint: Cervical Fusion Anterior/Posterior Narrative: Patient is seen bedside status post C3-4, C4-5, C5-6 anterior cervical diskectomy and fusion with cages and C3-4, C4-5, C5-6 posterior instrumented cervical fusion. Patient is postop day 2. He is doing well, is ambulating well with therapy and complains only of a headache without aura. He states that the pain he had in his arm yesterday has improved today. We discussed when he could return to his [facility]. Patient is stable and ready to go home today. Discharge Providers Date of admission: 10/19/18 06:06 Discharge Date: 10/21/18 Primary care physician: Miguel Sanchez DO Consults: 10/19/18 07:41 Consult to Respiratory Therapy Evaluate & Treat Comment: Physician Instructions: Evaluate and treat 10/19/18 13:35 Consult to Occupational Therapy Evaluate & Treat Comment: Physician Instructions: Evaluate and treat Consult to Physical Therapy Evaluate & Treat Comment: Physician Instructions: Evaluate and Treat Consult to Speech Therapy Evaluate & Treat Comment: s/p 3 level ACDF Physician Instructions: Evaluate and treat Discharge provider: Cally Boudreaux PA-C Summary Discharge Diagnosis: Cervical stenosis with myelopathy Hospital Course: Patient admitted to the hospital s/p C3-4, C4-5, C5-6 anterior cervical diskectomy and fusion with cages with C3-4, C4-5, C5-[address] fusion [address] Goldman on 10/19/2018. Patient tolerated the procedure well with no major complications. They were transferred to the acute care floor where they were placed on the standard cervical fusion post-operative pathway and protocol. They were seen by physical therapy who recommended that they be discharged home. They were stable and ready for discharge on 10/21/2018. Status at Discharge Cognitive/behavioral status at discharge: oriented Functional status at discharge: uses cane/walker Overall status at discharge: patient is progressing back to baseline Time Spent with Patient Less than 30 minutes Exam Vital Signs (past 8 hours): - 10/21/18 07:54 10/21/18 08:30 10/21/18 09:03 Temperature 98.1 F Pulse Rate 89 89 Respiratory Rate 20 Blood Pressure 131/79 131/79 Pulse Oximetry 96 96 Fraction of Inspired Oxygen 21 Oxygen Delivery Method Room Air Oxygen Flow Rate 0 Narrative Exam Narrative: Well-developed, well-nourished, no acute distress. Alert and oriented to person, place, and time. Dressing on anterior neck is clean, dry, and intact with no signs of drainage. Minimal erythema and generalized swelling around the surgical site. Neurovascularly intact in bilateral upper extremities intact range of motion. Discharge Plan Discharge Plan Patient Disposition: Home Discharge comment: f/u 1.5 wks do not restart blood thinners (eliquis) until Thursday Discharge Med Rec/Prescriptions Prescriptions: New celecoxib [Celebrex] 200 mg Capsule 200 mg PO BID PRN (Reason: pain) Qty: 60 RF: 0 docusate sodium [DOK] 100 mg Capsule 100 mg PO BID PRN (Reason: constipation) Qty: 20 RF: 0 hydroxyzine pamoate 25 mg Capsule 25 mg PO Q4HR PRN (Reason: spasms) Qty: 20 RF: 0 oxycodone 5 mg Tablet See Rx Instructions .ROUTE .COMPLEX PRN (Reason: Pain, Moderate (4-6)) Qty: 40 RF: 0 Continued atorvastatin 80 mg Tablet 80 mg PO BEDTIME RF: 0 lisinopril 20 mg Tablet 20 mg PO BID RF: 0 metoprolol tartrate 50 mg Tablet 50 mg PO BID RF: 0 albuterol sulfate [ProAir HFA] 90 mcg/actuation Hfa Aerosol Inhaler 2 puff INHALATION Q4-6H PRN (Reason: Asthma) RF: 0 loratadine 10 mg Tablet 10 mg PO DAILY RF: 0 Novolog Flexpen U-100 Insulin 100 unit/mL Insulin Pen 35 unit SUBCUT TID RF: 0 Flonase Sensimist 27.5 mcg/actuation [place],Suspension 1 spray INTRANASAL BID RF: 0 Lantus Solostar U-100 Insulin 100 unit/mL (3 mL) Insulin Pen 70 unit SUBCUT BEDTIME RF: 0 fenofibrate nanocrystallized [Triglide] 160 mg Tablet 160 mg PO BEDTIME RF: 0 Eliquis 5 mg Tablet 5 mg PO BID RF: 0 bupropion HCl 150 mg Tablet Sustained-Release 12 Hr 150 mg PO BID RF: 0 Discontinued enoxaparin 100 mg/mL syringe RF: 0 Follow up/Referrals: Fabián Goldman MD [Physician] - (Follow up in 10-14 days at your previously scheduled post-op appointment.) Provider Discharge Instructions Diet: Carb-consistent/Diabetic Activity: limited BLT 10 lbs max, soft collar for comfort Skin/Wound/Dressing Care Report to your healthcare provider any signs of infection, such as:: chills, fever, night sweats, increased pain, unusual drainage and unusual redness Dressing: may change and shower POD#5 (Thursday) Visit Report/Discharge Packet Stand Alone Forms: Surgery Discharge Discharge Data Primary Care Provider: Miguel Sanchez Attending Provider: Fabián Goldman Admbrodie Date/Time: 10/19/18 06:06 Quality VTE Deep Vein Thrombosis/Pulmonary Embolism Present on Admission: No
--- NOTE | 2018-10-21 11:00 | PT.IPTN ---
Current Diagnoses Obstructive sleep apnea (adult) (pediatric) (10/19/18) Unspecified cord compression (10/19/18) Strain of muscle, fascia and tendon at neck level, subsequent encounter (10/19/18) Surgery Performed Operation Date: 10/19/18 07:45 Actual Procedures p C3-4,C4-5,C5-6 Anterior discectomy & Ant/Post Instru. fusion & bone graft - Fabián Goldman MD Physical Therapy Treatment Note M2 PT-IP Current Condition Start: 10/19/18 17:34 Freq: NEEDED Status: Active Protocol: Document 10/19/18 14:54 AB (Rec: 10/19/18 17:55 AB [id number]) Physical Therapy Current Condition Current Condition Evaluation Date 10/19/18 Treatment Diagnosis s/p C3-6 anterior and posterior fusion; difficulty in walking Onset Date 10/19/18 Precautions Cervical Spine Precautions Soft Collar for Comfort No Heavy Lifting Log Roll M3 PT-IP Subjective Start: 10/19/18 17:34 Freq: NEEDED Status: Active Protocol: Document 10/21/18 10:53 SA (Rec: 10/21/18 11:00 SA [id number]) Subjective Physical Therapy Visit Type Type Treatment Note Visit Start Time 09:42 Visit Stop Time 10:10 Total Visit Minutes 28 Notes Pt with present for PT. Number of DJANGO DEVELOPER Visits 3 Physical Therapy Visit Comments Patient Comments Pt in bed, agreeable to PT this AM. Patient Goals To return home with . Therapy Pain Assessment Pain When Pain Assessed During Mobility Pain Present Pain Present Pain Reported Location neck Intensity 2 Scale Used Numeric (1 - 10) Pain Management Techniques Re-positioning Timing of Activity with Medications M4 PT-IP Mobility and Gait Start: 10/19/18 17:34 Freq: NEEDED Status: Active Protocol: Document 10/21/18 10:53 SA (Rec: 10/21/18 11:00 SA [id number]) PT-Bed Mobility Assessment Rolling Type of Rolling Log Rolling Level of Assist Standby Assistance Supine to Sit Supine to Sit Standby Assistance Sit to Supine Sit to Supine Standby Assistance Scooting Scooting to Edge of Bed Standby Assistance Scooting Up and Down in Bed Standby Assistance PT-Transfer Assessment Sit to and From Stand Sit to and from Stand Standby Assistance Contact Guard Assistance 1 Person Assistance Equipment Transfer Assistive Device Gait Belt Front Wheeled Walker Orthotic/Prosthetic Devices or Brace: Yes Transfers Transfer Destination Bed Chair Transfer Technique Stand Step Pivot Transfer Ability Level of Assist Standby Assistance 1 Person Assistance Comments Mobility Comments Pt progressing well with mobility, SBA-CGA with all functional mobility and ue of FWW. 02 sats 88-94% on RA with activity. Gait Assessment Gait Gait Assistance Required: Standby Assistance Distance (Feet) 250 Able to Maintain Weight Bearing Status Yes During Gait Assistive Devices Assistive Device Gait Belt Front Wheeled Walker Orthotic/Prosthetic Devices or Brace: Yes Gait Deviations General Gait Pattern Antalgic Factors Limiting Gait Function Factors Limiting Gait Function Decreased Activity Tolerance Decreased Strength Comments Gait Comments Improving gait pattern and endurance, limited WBing through FWW. Stair Climbing Assessment Evaluation Level of Assist On Stairs Standby Assistance 1 Person Assistance Devices Stair Climbing Assistive Devices Left Railing Right Railing Technique/Endurance Stair Climbing Direction Ascend and Descend Stair Climbing Technique Step Over Step Number of Steps Climbed 3 Query Text: Stair Climbing Set # Repetitions (reps) 2 Comments Stair Climbing Comments SBA with stairs and single rail to B rails on occasion. M5 PT-IP Objective Assessments Start: 10/19/18 17:34 Freq: NEEDED Status: Active Protocol: Document 10/19/18 14:54 AB (Rec: 10/19/18 17:55 AB [id number]) Orientation Orientation/Cognition Level of Alertness Alert Orientation Name Place Situation Language Function Ability Hard of Hearing Gross Range of Motion Lower Extremity ROM Assessment Within Functional Limits Strength Lower Extremity Strength Assessment Within Functional Limits Coordination Assessment Gross Coordination Gross Coordination WNL Sensation Assessment Sensation Gross Sensation WNL Muscle Tone Muscle Tone WNL Yes M6 PT-IP Treatment Start: 10/19/18 17:34 Freq: NEEDED Status: Active Protocol: Document 10/21/18 10:53 SA (Rec: 10/21/18 11:00 SA [id number]) Physical Therapy Treatment Exercises Exercises Ankle Pumps Gluteal Sets Education Education Provided Precautions Weight Bearing Status Post-Op Packet Safety Other Treatments Other Treatment Performed Pt reaching PT goals, progressing well with all mobilities. Anticipate d/c home with today. Has all needed equipment. M7 PT-IP Assessment and Plan Start: 10/19/18 17:34 Freq: NEEDED Status: Active Protocol: Document 10/21/18 10:53 SA (Rec: 10/21/18 11:00 SA [id number]) PT Summary Assessment and Plan Summary Assessment Summary 02 sats 88-94% with activity on RA. Frequency of Treatment Frequency Of Treatment Twice a Day Treatment Plan Physical Therapy Treatment Plan Bed Mobility Training Transfer Training Gait Training Therapeutic Exercise Balance Retraining Post Op Education Discharge Planning Hot or Cold Pack Neuromuscular Re-ed Coordination Retraining Manual Therapy Recommendations To Nursing Amount of Assist Needed 1 Person Assist Discharge Recommendations PT Discharge Recommendations Home with 05/01 Assist Home Health
[2018-10-21] MEDS: KETOROLAC 15 MG/ML VIAL IV (11:21)
== END 2018-10-21 12:25 | disposition home or self-care (01) | DRG 455 ==
PROVIDERS: Admitting Provider Orthopaedic Surgery; PCP Family Medicine; Visit Provider Orthopaedic Surgery
PROC: 0RG20A0 Fusion of 2 or more Cervical Vertebral Joints with Interbody Fusion Device, Anterior Approach, Anterior Column, Open Approach (ICD-10-PCS; principal; 2018-10-19 07:45)
DX: M50.01 Cervical disc disorder with myelopathy, high cervical region (principal); M48.02 Spinal stenosis, cervical region; G47.33 Obstructive sleep apnea (adult) (pediatric); I10 Essential (primary) hypertension; E78.5 Hyperlipidemia, unspecified; E11.9 Type 2 diabetes mellitus without complications; Z87.891 Personal history of nicotine dependence; I48.0 Paroxysmal atrial fibrillation; Z79.01 Long term (current) use of anticoagulants; Z97.4 Presence of external hearing-aid; F32.9 Major depressive disorder, single episode, unspecified
CPT/HCPCS: 72040; 76000; 82962; 94760; 97116; 97162; 97165; 97530; C1776; J0131; J0690; J1170; J1885; J2250; J2405; J2704; J3010; J3410

== ENCOUNTER → 2020-10-18 19:13 | Outpatient (CLI) | payer MEDICARE, OTHER, SELFPAY ==
[2020-09-10 14:10] VITALS: BMI 35.7
--- NOTE | 2020-10-18 | DI.MRI.S_ITS ---
PROCEDURE: MR KNEE LT WO CON INDICATIONS: pain in left knee TECHNIQUE: Noncontrast sagittal PD fast spin echo and T2 fast spin echo with fat saturation, sagittal 3-D FLASH with fat saturation; coronal T1 spin echo and PD fast spin echo with fat saturation, and axial PD fast spin echo with fat saturation through the knee. COMPARISON: None. FINDINGS: Image quality: Excellent. Menisci: Complex oblique tear involving posterior horn and body of medial meniscus is seen extending to superior articulating surface. Peripheral displacement of medial meniscus is noted bowing medial collateral ligament. There is no focal lateral meniscal tear. The meniscal root ligaments appear intact. Cruciate ligaments: The anterior and posterior cruciate ligaments appear intact. Medial structures: Low-grade MCL sprain/partial-thickness tear is seen. The posterior oblique ligament, semimembranosus tendon insertions, oblique popliteal ligament, and meniscocapsular junction appear intact. Visualized portions of the pes anserinus tendons appear normal. No abnormal bursal fluid. Lateral structures: The lateral collateral ligament, long and short heads of the biceps femoris tendon appear intact. The popliteus tendon appears normal; the popliteofibular ligament appears intact. The posterosuperior and anteroinferior popliteomeniscal fascicles appear intact. The arcuate and fabellofibular ligaments appear intact, on either side of the lateral inferior geniculate artery. Iliotibial band appears normal. Anterior structures: There is distal quadriceps tendinosis at its superior patellar insertion. Proximal patellar tendinosis is also seen at its inferior patellar insertion. Mild anterior soft tissue swelling is noted. Patellar alignment is normal. No femoral trochlear dysplasia or ventral trochlear prominence. No edema in the infrapatellar fat pad. Bones and cartilage: Mild to moderate tricompartmental osteoarthritis and chondromalacia is seen more prominent in medial femoral tibial compartment and medial facet of patella cartilage. Joint space: There is small to moderate amount of joint fluid. No Ibrahim's cyst. Normal appearing synovial plicae are incidentally noted. IMPRESSION: 1. Complex oblique tear involving posterior horn and body of medial meniscus extending to superior articulating surface. Peripheral displacement of medial meniscus bowing medial collateral ligament. No focal lateral meniscal tear. 2. Low-grade MCL sprain/partial-thickness tear. Cruciate ligaments are intact. 3. Distal quadriceps and proximal patellar tendinosis and low-grade partial-thickness tear. Mild anterior left knee soft tissue swelling and edema. 4. Mild to moderate tricompartmental osteoarthritis and chondromalacia more prominent in medial femoral tibial compartment. No fracture or dislocation. Low-grade medial chondromalacia patella. 5. Small to moderate amount of joint effusion, no gross loose body. Dictated by: Everett Leger M.D. on 10/19/2020 at 9:01 Approved by: Everett Leger M.D. on 10/19/2020 at 9:12
== END ==
PROVIDERS: PCP Family Medicine; Referring Provider Orthopaedic Surgery; Visit Provider Orthopaedic Surgery
DX: M25.562 Pain in left knee (principal); S83.232A Complex tear of medial meniscus, current injury, left knee, initial encounter; S83.412A Sprain of medial collateral ligament of left knee, initial encounter; S76.112A Strain of left quadriceps muscle, fascia and tendon, initial encounter; M17.12 Unilateral primary osteoarthritis, left knee; M22.42 Chondromalacia patellae, left knee; M25.462 Effusion, left knee
CPT/HCPCS: 73721

== ENCOUNTER → 2020-10-31 12:04 | Outpatient (CLI) | payer MEDICARE, OTHER, SELFPAY ==
[2020-09-10 14:10] VITALS: BMI 35.7
[2020-10-31 12:17] LABS: Bacteria Urine None Seen; RBC Urine None Seen (0-5/HPF)
[2020-10-31 12:48] LABS: Appearance Urine UA CLEAR; Bilirubin Urine UA NEGATIVE (NEGATIVE); Color Urine UA YELLOW; Glucose Urine UA NEGATIVE (Negative); Ketones Urine UA NEGATIVE (NEGATIVE); Leukocyte Esterase Urine UA NEGATIVE (NEGATIVE); Nitrite Urine UA NEGATIVE (Negative); Occult Blood Urine UA NEGATIVE (Negative); Protein Urine UA NEGATIVE (Negative); Urobilinogen Urine UA 0.2 E.U./dL (0.2); pH Urine UA 5.5 (4.5-8.0)
[2020-10-31 13:07] LABS: Culture Indicated Urine Cult Not Indicated; Squamous Epithelial Cell Urine 0-1 /HPF (0-5/HPF); WBC Urine 0-1/HPF (0-5/HPF)
== END ==
PROVIDERS: PCP Family Medicine; Referring Provider Orthopaedic Surgery; Visit Provider Orthopaedic Surgery
DX: Z01.818 Encounter for other preprocedural examination (principal); N39.0 Urinary tract infection, site not specified
CPT/HCPCS: 81001; 93005; 93010

== ENCOUNTER → 2020-11-26 09:37 | Outpatient (CLI) | payer MEDICARE, OTHER, SELFPAY ==
[2020-09-10 14:10] VITALS: BMI 35.7
[2020-11-26 11:17] LABS: COVID19 -Nasal RAPID Negative (Negative)
== END ==
PROVIDERS: PCP Family Medicine; Visit Provider Physician Assistant
DX: Z01.812 Encounter for preprocedural laboratory examination (principal); Z20.822 Contact with and (suspected) exposure to COVID-19
CPT/HCPCS: 87635; C9803

== ENCOUNTER → 2020-11-27 06:04 | Day surgery (SDC) | payer MEDICARE, OTHER, SELFPAY ==
[2020-09-10 14:10] VITALS: BMI 35.7
[2020-11-23 10:14] VITALS: BMI 36.3
[2020-11-27] VITALS (8 sets, daily range): BP systolic 125–166; BP diastolic 56–85; PULSE 56–60; RESP 9–16; TEMP 36.1–37.1; O2SAT 92–99; BMI 36.3
[2020-11-27] MEDS: VANCOMYCIN 1,000 MG/200 ML PIGGYBACK 200 MG IV (07:26)
[2020-11-27] MEDS: LACTATED RINGERS 1,000 ML 42 ML IV ×2 (07:27→10:09)
--- NOTE | 2020-11-27 07:39 | PM.PREOP ---
Pre-operative Note COVID-19 COVID-19 status: Negative Interval Note History & Physical reviewed/Exam performed by Physician: Yes Changes to H&P: No
--- NOTE | 2020-11-27 07:49 | PM.OP.1 ---
Operative Date/Time/Diagnoses Date of procedure: 11/27/20 Time of procedure: 07:50 Pre-op diagnosis: left knee OA Post-op diagnosis: same Procedure & Clinicians Procedure: Left knee medial unicompartment replacement Same procedure as scheduled: Yes Indications: The patient has had progressively worsening left knee pain with radiographic changes consistent with arthritis. Non-operative management has failed and the patient has requested medial Uni knee replacement. The risks, benefits and alternatives to surgery were discussed with the patient prior to proceeding. Risks discussed included, but were not limited to, failure to relieve pain, stiffness, infection, nerve damage, deep venous thrombosis, pulmonary embolism, stroke, coma, heart attack, permanent paralysis and , as well as the potential need for eventual revision of the prosthetic. Surgeon: Cassandra Contreras Electric Utility Lineworker: Eliezer Nix Click Yes if Unassisted: Yes Anesthesia Type: General and Peripheral nerve block Operative Notes Findings: Severe left knee medial unicompartment arthritis Closure Type: primary Specimen(s): none sent Prosthetic devices, grafts, tissues, transplants, or devices: Journey unicompartment knee size 6 femur, size 8 tibia, +8 poly Estimated Blood Loss (mL): 250 Blood products transfused: none Tourniquet time (min): 82 Procedure in detail: The patient was seen in the pre-operative area, where the left knee was identified as the operative site and this was marked with my initials. The patient received pre-operative antibiotics, and was taken to the operating room and placed on the operative table in the supine position. After satisfactory anesthesia, a time recorder out was performed. The left leg was encircled with a tourniquet about the proximal thigh, and the leg was prepared from the toes to the tourniquet with ChloroPrep in the usual fashion and draped through sterile drapes. The leg was elevated and exsanguinated with Eschmark bandage and the tourniquet inflated to [250] mmHg pressure. The knee was approached through an approximately 10 cm incision medial parapatella incision and carried into the knee through a medial parapatellar arthrotomy. The osteophytes and medial meniscus were removed. Next, a small amount of the anterior tibial boss was carefully resected with a saw. The guide was placed along the medial joint line. It was meticulously adjusted to make sure there was appropriate slope that it was at the joint line and then was pinned to the tibia and the femur. The medial femoral condylar cut was made in extension. The tibial cut was made in flexion. The bone was meticulously irrigated with normal saline. Small amount of additional meniscus was resected posterior capsule was checked and injected with Marcaine. The extension gap was carefully checked with an 8 mm gap office administration instructor was noted that it fit well. A small number of additional osteophytes were resected. The tibia was a size [8]. It was noted that it fit without overhang. The femur was sized and it was noted to be a [6]. The appropriate cutting guide was pinned into place and carefully positioned on the femoral condyle. Drill holes were placed. The tibia was pinned into place and drill holes were made. Trial reduction with the appropriate poly showed full range of motion and good stability at 0, 45. and 90? with normal tracking of the components without edge loading. The bone was meticulously irrigated and dried. Additional Marcaine was injected. The posterior capsule was injected with 0.25% Marcaine mixed with 20 ml Exparel for post-operative pain control. The remainder of this mixture was injected into the capsule and subcutaneous tissues during cement curing. Range of motion was [0-130], with good stability throughout the range. The trials were then remove. The cement was as applied and the final prosthetics placed. Excess cement was removed during and after cement curing. A brief medial compartment Betadine soak was performed. After confirming there was no extruded cement posteriorly, the final tibial insert was placed. The knee was copiously irrigated and the tourniquet deflated. Hemostasis was obtained. The capsule was closed with interrupted vicryl. The subcutaneous tissue was closed with barbed sutures. The skin with a running 3-0 V-Lock suture and surgical glue. An Aquacel Ag dressing was applied and the patient was taken to recovery having tolerated the procedure well. Complications: none Post-operative Condition: stable Disposition: Acute Care Plan for aftercare: The patient will be maintained on a standard Uni knee replacement protocol with weight bearing as tolerated. The patient will receive Eliquis and sequential compression devices for DVT prophylaxis. The patient will be discharged home when safe for the home environment.
--- NOTE | 2020-11-27 08:01 | SUR.PREOP ---
Block start time [0743] . Monitoring initiated and maintained throughout procedure. Oxygen and medications given per anesthesiologist instructions. Patient remained stable throughout procedure, no adverse reactions noted. Block end time [0750].
--- NOTE | 2020-11-27 08:23 | P.PCN_ITS ---
Procedures Date/Time Date of procedure: 11/27/20 Time of procedure: 07:45 General Procedure description: Ultrasound guided adductor canal nerve block for post op pain control after left medial uni knee arthroplasty by Dr. Contreras. Risk and mahnaz efits of procedure discussed with patient. ASA monitoring applied to patient. O2 given via nasal cannula. 2 mg Versed and 50 mcg fentanyl given for procedural sedation. Skin site was prepped with chlorhexidine and allowed to fully dry. Sterile gloves, mask, hat and probe cover were used to maintain sterility. 2% lidocaine and 30ga needle was used to make a small skin wheal at needle insertion site. Under ultrasound guidance, a 21ga 100mm Pajunk needle was directed into the adductor canal near femoral artery and saphenous nerve at the level of mid thigh. Patient reported no parasthesias. After negative aspiration, 20 mL 0.5% ropivicaine and 10mg dexamethasone were injected around saphenous ne rve. Patient tolerated procedure well.
[2020-11-27] MEDS: CEFAZOLIN 1 GM VIAL 2 GM IV (08:24)
[2020-11-27] MEDS: BUPIVACAINE 0.25% (PF) VIAL 30 ML INJ (08:26)
[2020-11-27] MEDS: EPINEPHrine 1 MG/ML IV (08:27)
[2020-11-27] MEDS: BUPIVACAINE LIPOSOME 266 MG/20 ML VIAL INJ (08:28)
[2020-11-27] MEDS: TRANEXAMIC ACID 1,000 MG VIAL 1000 MG INJ ×2 (08:29→10:08)
--- NOTE | 2020-11-27 08:30 | SUR.OPER ---
Supine on padded OR bed. Pillow under head, arms secured on padded armboards <90 degree abduction. Safety belt across torso. Non-operative leg secured with tape over blanket over lower leg. Operative leg secured in DeMayo/Ilam positioner. Foam padded brace at thigh of operative leg.
--- NOTE | 2020-11-27 10:30 | DI.RAD.S_ITS ---
PROCEDURE: XR KNEE LT 1TO2V INDICATIONS: POST OP UNI KNEE TECHNIQUE: 2 view(s) of the knee acquired. COMPARISON: None. FINDINGS: Bones: Patient is status post knee joint arthroplasty. Hardware components are in expected positions. Visualized bony structures are intact. Soft tissues: Overlying postoperative changes are noted. IMPRESSION: Normal alignment after medial unicompartmental left knee hemiarthroplasty. Dictated by: Graham Mueller M.D. on 11/27/2020 at 12:08 Approved by: Graham Meuller M.D. on 11/27/2020 at 12:08
[2020-11-27] MEDS: OXYCODONE/ACETAMINOPHEN 5/325 TABLET 1 TAB PO (10:55)
== END | disposition home or self-care (01) ==
PROVIDERS: PCP Family Medicine; Referring Provider Family Medicine; Visit Provider Orthopaedic Surgery
PROC: (CPT 27446; principal; 2020-11-27 07:45)
DX: M17.12 Unilateral primary osteoarthritis, left knee (principal); G47.30 Sleep apnea, unspecified; I10 Essential (primary) hypertension; E11.9 Type 2 diabetes mellitus without complications; E78.00 Pure hypercholesterolemia, unspecified; Z79.4 Long term (current) use of insulin
CPT/HCPCS: 27446; 64450; 73560; 82962; C1776; C9290; J0171; J0690; J1100; J2250; J2405; J2704; J3010

== ENCOUNTER → 2021-02-01 11:31 | Outpatient (CLI) | payer MEDICARE, OTHER, SELFPAY ==
[2020-09-10 14:10] VITALS: BMI 35.7
[2021-02-01 12:21] LABS: Add Manual Diff / Slide Review NO; Basophils Absolute Auto 100 /uL (0-100); Basophils Percent Auto 0.8 % (0-2); Eosinophils Absolute Auto 100 /uL (0-450); Eosinophils Percent Auto 1.9 % (2-4); Hematocrit 40.4 % (41-53); Hemoglobin 13.3 g/dL (13.5-17.5); Lymphocytes Absolute Auto 2700 /uL (1100-4500); Lymphocytes Percent Auto 35.7 % (25-40); Mean Corpuscular HGB Conc 32.9 % (30-36); Mean Corpuscular Hemoglobin 30.2 PG (26-34); Mean Corpuscular Volume 91.8 fL (80-100); Monocytes Absolute Auto 800 /uL (0-900); Monocytes Percent Auto 11.1 % (3-14); Neutrophils Absolute Auto 3800 /uL (1500-7000); Neutrophils Percent Auto 50.5 % (50-75); Platelet Count 165 X10^3/uL (150-400); Red Cell Distribution Width 14.4 % (11.6-14.8); White Blood Cell Count 7.5 X10^3/uL (4.5-11.0)
== END ==
PROVIDERS: PCP Family Medicine; Referring Provider Orthopaedic Surgery; Visit Provider Orthopaedic Surgery
DX: Z01.812 Encounter for preprocedural laboratory examination (principal)
CPT/HCPCS: 36415; 85025

== ENCOUNTER → 2021-02-06 17:29 | Outpatient (CLI) | payer MEDICARE, OTHER, SELFPAY ==
[2020-09-10 14:10] VITALS: BMI 35.7
--- NOTE | 2021-02-06 17:32 | DI.MRI.S_ITS ---
PROCEDURE: MR KNEE RT WO CON INDICATIONS: Unilateral primary osteoarthritis, right knee TECHNIQUE: Noncontrast sagittal PD fast spin echo and T2 fast spin echo with fat saturation, sagittal 3-D FLASH with fat saturation; coronal T1 spin echo and PD fast spin echo with fat saturation, and axial PD fast spin echo with fat saturation through the knee. COMPARISON: [facility], MR, MR KNEE LT WO CON, 10/18/2020, 19:37. FINDINGS: Menisci: Medial meniscus: Ill-defined macerated tear of the body and posterior horn of the medial meniscus. There is slight partial extrusion and marked truncation free margin posterior horn. Abnormal signal extends to the periphery and undersurface of the body. Lateral meniscus: Intact. Cruciate ligaments: Anterior cruciate ligament: Intact. Posterior cruciate ligament: Intact. Medial structures: The medial collateral ligament: There is medial bowing of the medial collateral ligament, with mild internal signal changes and no complete rupture. There is adjacent soft tissue edema. The appearance could reflect reactive changes to medial compartment pathology, versus low-grade sprain of the MCL. Semimembranosus tendon: Intact. Visualized pes anserinus tendons: Intact. Bursal fluid: none. Lateral structures: The lateral collateral ligament intact. Biceps femoris tendon appears intact. Popliteus tendon grossly unremarkable. Iliotibial band appears intact. Anterior structures: Quadriceps tendon: Intact. Medial patellofemoral ligament: Intact. Lateral patellofemoral ligament: Intact. Patellar tendon: Mild tendinopathy. Anterior soft tissues: Prepatellar and superficial infrapatellar subcutaneous edema/fluid. Deep infrapatellar region: [id number] fluid raising possibility of bursitis.. Bones and cartilage: Marrow: No focal marrow contusion or discrete low signal fracture line. Medial compartment: Diffuse partial-thickness loss of the femoral and tibial articular cartilage. Lateral compartment: Mild central tibial cartilage intrasubstance signal change. Patellofemoral compartment: No focal chondral defect. Joint space: Effusion: Moderate joint effusion. Popliteal fossa: No Ibrahim's cyst. Loose bodies: None. IMPRESSION: Ill-defined tear of the body and posterior horn of the medial meniscus with slight partial extrusion. Adjacent MCL changes as above. Degenerative joint disease primarily involving the medial and lateral compartments. Moderate joint effusion. Patellar tendinopathy with adjacent fluid/edema. Dictated by: Roldan Gil M.D. on 02/07/2021 at 8:09 Approved by: Roldan Gil M.D. on 02/07/2021 at 9:04
== END ==
PROVIDERS: PCP Family Medicine; Referring Provider Orthopaedic Surgery; Visit Provider Orthopaedic Surgery
DX: M17.11 Unilateral primary osteoarthritis, right knee (principal); S83.241A Other tear of medial meniscus, current injury, right knee, initial encounter; M25.461 Effusion, right knee
CPT/HCPCS: 73721

== ENCOUNTER → 2021-02-11 08:56 | Outpatient (CLI) | payer MEDICARE, OTHER, SELFPAY ==
[2020-09-10 14:10] VITALS: BMI 35.7
[2021-02-11 13:57] LABS: COVID19 -Nasal RAPID Negative (Negative)
== END ==
PROVIDERS: PCP Family Medicine; Visit Provider Physician Assistant
DX: Z20.822 Contact with and (suspected) exposure to COVID-19 (principal); Z01.812 Encounter for preprocedural laboratory examination
CPT/HCPCS: 87635; C9803

== ENCOUNTER 2021-02-12 06:14 | Day surgery (SDC) | payer MEDICARE, OTHER, SELFPAY ==
[2020-09-10 14:10] VITALS: BMI 35.7
[2021-02-06 14:48] VITALS: BMI 36.3
[2021-02-12] VITALS (8 sets, daily range): BP systolic 122–154; BP diastolic 45–63; PULSE 62–72; RESP 12–20; TEMP 36.2–36.7; O2SAT 93–99; BMI 36.3
--- NOTE | 2021-02-12 06:30 | DI.RAD.S_ITS ---
PROCEDURE: XR KNEE RT 1TO2V INDICATIONS: postop films TECHNIQUE: 2 view(s) of the knee acquired. COMPARISON: [facility], CR, XR KNEE LT 1TO2V, 11/27/2020, 10:32. FINDINGS: Bones: Patient is status post knee joint medial hemiarthroplasty. Hardware components are in expected positions. Visualized bony structures are intact. Soft tissues: Overlying postoperative changes are noted. IMPRESSION: Medial hemiarthroplasty in good position. Approved by: Contreras Antunez M.D. on 02/12/2021 at 12:29
[2021-02-12] MEDS: CELECOXIB 200 MG CAPSULE PO (06:51)
[2021-02-12] MEDS: ACETAMINOPHEN 325 MG TABLET 975 MG PO (06:51)
[2021-02-12] MEDS: VANCOMYCIN 1,000 MG/200 ML PIGGYBACK 200 MG IV (06:59)
[2021-02-12] MEDS: PREGABALIN 75 MG CAPSULE PO (07:19)
[2021-02-12] MEDS: LACTATED RINGERS 1,000 ML 42 ML IV ×2 (07:19→08:34)
--- NOTE | 2021-02-12 07:20 | SUR.PREOP ---
Verified ok to give jodi to pt with Dr. Titus
--- NOTE | 2021-02-12 07:37 | PM.PREOP ---
Pre-operative Note COVID-19 COVID-19 status: Negative Interval Note History & Physical reviewed/Exam performed by Physician: Yes Changes to H&P: No
--- NOTE | 2021-02-12 07:37 | PM.OP.1 ---
Operative Date/Time/Diagnoses Date of procedure: 02/12/21 Time of procedure: 08:00 Pre-op diagnosis: right knee medial OA Post-op diagnosis: same Procedure & Clinicians Procedure: Right knee medial unicompartment replacement Same procedure as scheduled: Yes Indications: The patient has had progressively worsening right knee pain with radiographic changes consistent with arthritis. Non-operative management has failed and the patient has requested unicompartment knee replacement. The risks, benefits and alternatives to surgery were discussed with the patient prior to proceeding. Risks discussed included, but were not limited to, failure to relieve pain, stiffness, infection, nerve damage, deep venous thrombosis, pulmonary embolism, stroke, coma, heart attack, permanent paralysis and , as well as the potential need for eventual revision of the prosthetic. Surgeon: Cassandra Contreras Commercial Loan Analyst: Alicia Reynolds Anesthesia Type: General and Local Operative Notes Findings: Severe right knee medial compartment arthritis, large joint effusion, minimal patellofemoral OA, good stability Closure Type: primary Specimen(s): none sent Prosthetic devices, grafts, tissues, transplants, or devices: Journey right medial size 6 femur, size 7 tibia, +8 poly Estimated Blood Loss (mL): 100 Blood products transfused: none Tourniquet time (min): 60 Procedure in detail: The patient was seen in the pre-operative area, where the right knee was identified as the operative site and this was marked with my initials. The patient received pre-operative antibiotics, and was taken to the operating room and placed on the operative table in the supine position. After satisfactory anesthesia, a [employer] out was performed. The right leg was encircled with a tourniquet about the proximal thigh, and the leg was prepared from the toes to the tourniquet with ChloroPrep in the usual fashion and draped through sterile drapes. The leg was elevated and exsanguinated with Eschmark bandage and the tourniquet inflated to [250] mmHg pressure. The knee was approached through an approximately 10 cm incision medial parapatella incision and carried into the knee through a medial parapatellar arthrotomy. The osteophytes and medial meniscus were removed. Next, a small amount of the anterior tibial boss was carefully resected with a saw. The guide was placed along the medial joint line. It was meticulously adjusted to make sure there was appropriate slope that it was at the joint line and then was pinned to the tibia and the femur. The medial femoral condylar cut was made in extension. The tibial cut was made in flexion. The bone was meticulously irrigated with normal saline. Small amount of additional meniscus was resected posterior capsule was checked and injected with Marcaine. The extension gap was carefully checked with an 8 mm gap specialty plant supervisor was noted that it fit well. A small number of additional osteophytes were resected. The tibia was a size [7]. It was noted that it fit without overhang. The femur was sized and it was noted to be a [6]. The appropriate cutting guide was pinned into place and carefully positioned on the femoral condyle. Drill holes were placed. The tibia was pinned into place and drill holes were made. Trial reduction with the appropriate poly showed full range of motion and good stability at 0, 45. and 90? with normal tracking of the components without edge loading. The bone was meticulously irrigated and dried. Additional Marcaine was injected. The posterior capsule was injected with 0.25% Marcaine mixed with 20 ml Exparel for post-operative pain control. The remainder of this mixture was injected into the capsule and subcutaneous tissues during cement curing. Range of motion was [0-130], with good stability throughout the range. The trials were then remove. The cement was as applied and the final prosthetics placed. Excess cement was removed during and after cement curing. After confirming there was no extruded cement posteriorly, the final tibial insert was placed. The knee was copiously irrigated and the tourniquet deflated. Hemostasis was obtained. The capsule was closed with interrupted vicryl. The subcutaneous tissue was closed with barbed sutures. The skin with a running 3-0 V-Lock suture and surgical glue. An Aquacel Ag dressing was applied and the patient was taken to recovery having tolerated the procedure well. Complications: none Post-operative Condition: stable Disposition: same day surgery Plan for aftercare: The patient will be maintained on a standard medial Uni knee replacement protocol with weight bearing as tolerated. The patient will receive Eliquis for DVT prophylaxis. The patient will be discharged home when safe for the home environment.
[2021-02-12] MEDS: CEFAZOLIN 1 GM VIAL 2 GM IV (08:02)
[2021-02-12] MEDS: TRANEXAMIC ACID 1,000 MG VIAL 1000 MG INJ ×2 (08:04→09:11)
--- NOTE | 2021-02-12 08:13 | SUR.OPER ---
Supine on padded OR bed. Pillow under head, arms secured on padded armboards <90 degree abduction. Safety belt across torso. Non-operative leg secured with tape over blanket over lower leg. Operative leg secured in Liam positioned. Foam padded brace at thigh of operative leg.
[2021-02-12] MEDS: BUPIVACAINE LIPOSOME 266 MG/20 ML VIAL INJ (08:18)
[2021-02-12] MEDS: BUPIVACAINE 0.25% (PF) VIAL 30 ML INJ (08:20)
[2021-02-12] MEDS: EPINEPHrine 1 MG/ML SUBCUT (08:21)
== END 2021-02-12 10:44 | disposition home or self-care (01) ==
PROVIDERS: PCP Family Medicine; Referring Provider Orthopaedic Surgery; Visit Provider Orthopaedic Surgery
PROC: (CPT 27446; principal; 2021-02-12 07:45)
DX: M17.11 Unilateral primary osteoarthritis, right knee (principal); E11.9 Type 2 diabetes mellitus without complications; E78.1 Pure hyperglyceridemia; E78.00 Pure hypercholesterolemia, unspecified; G47.30 Sleep apnea, unspecified; Z79.4 Long term (current) use of insulin; Z79.01 Long term (current) use of anticoagulants; J44.9 Chronic obstructive pulmonary disease, unspecified; I48.91 Unspecified atrial fibrillation; I11.0 Hypertensive heart disease with heart failure; I50.9 Heart failure, unspecified; Z86.73 Personal history of transient ischemic attack (TIA), and cerebral infarction without residual deficits
CPT/HCPCS: 27446; 73560; C1776; C9290; J0171; J0690; J2250; J2405; J2704; J3010

== ENCOUNTER → 2021-11-08 07:12 | Outpatient (CLI) | payer MEDICARE, OTHER, SELFPAY ==
[2020-09-10 14:10] VITALS: BMI 35.7
--- NOTE | 2021-11-08 | DI.US.S_ITS ---
PROCEDURE: US ABD AORTA ANEURYSM SCREEN INDICATIONS: AAA SCREENING TECHNIQUE: Real time scanning was performed of the aorta and iliac arteries, with image documentation. COMPARISON: [facility], CT, PE STUDY (CTA CHEST), 03/09/2015, 10:38. FINDINGS: Aorta: Proximal aortic diameter measures 2.5 cm. Mid-aorta measures 2.1 cm. Distal aortic diameter is 1.5 cm. Iliac arteries: Right common iliac artery measures 1.2 cm. Left common iliac artery measures 1 cm. IMPRESSION: No abdominal aortic aneurysm. Dictated by: Gary Mercado M.D. on 11/08/2021 at 8:53 Approved by: Gary Mercado M.D. on 11/08/2021 at 8:54
== END ==
PROVIDERS: PCP Family Medicine; Referring Provider Family Medicine; Visit Provider Family Medicine
DX: Z87.891 Personal history of nicotine dependence (principal)
CPT/HCPCS: 76706

== ENCOUNTER 2022-08-24 14:01 | Inpatient (IN) | payer MEDICARE, OTHER, SELFPAY ==
[2020-09-10 14:10] VITALS: BMI 35.7
[2022-08-24] VITALS (14 sets, daily range): BP systolic 91–143; BP diastolic 53–63; PULSE 62–77; RESP 15–28; TEMP 37.1–37.3; O2SAT 86–97; BMI 37.1
--- NOTE | 2022-08-24 14:22 | DI.RAD.S_ITS ---
PROCEDURE: XR CHEST 2V INDICATIONS: shortness of breath TECHNIQUE: 2 views of the chest were acquired. COMPARISON: [facility], CR, XR CHEST 2V, 07/31/2018, 12:49. FINDINGS: Surgical changes and devices: None. Lungs and pleura: Bilateral perihilar infiltrates are seen consistent with pulmonary edema Mediastinum: Mediastinal contours are normal. Heart size is enlarged. Bones and chest wall: No suspicious bony abnormalities. Soft tissues appear unremarkable. IMPRESSION: 1. Pulmonary edema, likely due to congestive heart failure, less likely a diffuse infectious process. 2. Cardiomegaly. Dictated by: Blaine Snider M.D. on 08/24/2022 at 14:43 Approved by: Blaine Snider M.D. on 08/24/2022 at 14:44
--- NOTE | 2022-08-24 14:25 | ED.SOB ---
HPI - SOB/Dyspnea <Alisia Coelho, [facility] - Last Filed: 08/24/22 16:15> General Chief Complaint: Shortness of Breath/Dyspnea Stated Complaint: Covid positive, SOB, coughing up, wheezing, ect Time Seen by Provider: 08/24/22 14:16 Source: patient Mode of arrival: Ambulatory History of Present Illness HPI Narrative: This is a 77-year-old gentleman who presents to the emergency department who was diagnosed with COVID 4 days ago and started Paxlovid reduced dosing 3 days ago. He has a history asthma, CAD, CHF, CVA, type 2 diabetes, chronic AFib on Eliquis, lower GI bleed, lumbar fusion and VERNON who wears CPAP at night. He endorses feeling short of breath, increased fatigue, states he has worsening shortness of breath with any activity. Denies swelling in his lower extremities, states that he can hear crackles in his chest at nighttime. Denies fever, vomiting or diarrhea but states he has not had a bowel movement in the last 3 days. He has been taking MiraLax. He has had a productive cough, and increased work of breathing. His primary care provider is Dr. Fabian. He is a former smoker. His states that he was coughing up sputum last night, having wheezing, and has not gotten better like she has. They both have COVID currently. Related Data Home Medications Medication Instructions Recorded Confirmed albuterol sulfate 90 mcg/actuation 2 puff inhalation Q4-6H PRN Asthma 10/11/18 02/06/21 aerosol inhaler (ProAir HFA) apixaban 5 mg tablet (Eliquis) 5 mg PO BID 10/11/18 02/12/21 atorvastatin 80 mg tablet 80 mg PO BEDTIME 10/11/18 02/12/21 bupropion HCl 150 mg tablet,12 hr 150 mg PO BID 10/11/18 02/12/21 sustained-release fluticasone furoate 27.5 1 spray intranasal BID 10/11/18 02/12/21 mcg/actuation nasal spray,suspension (Flonase Sensimist) insulin glargine 100 unit/mL (3 76 unit SUBCUT BEDTIME 10/11/18 02/12/21 mL) subcutaneous pen (Lantus Solostar U-100 Insulin) loratadine 10 mg tablet 10 mg PO DAILY 10/11/18 02/12/21 metoprolol tartrate 50 mg tablet 50 mg PO BID 10/11/18 02/12/21 amlodipine 10 mg tablet 5 mg PO DAILY 05/21/20 02/12/21 fluticasone 250 mcg-salmeterol 50 1 inh inhalation BID 05/21/20 02/12/21 mcg/dose blistr powdr for inhalation (Advair Diskus) montelukast 10 mg tablet 10 mg PO DAILY 05/21/20 02/12/21 (Singulair) gabapentin 300 mg capsule 300 mg PO TID 06/13/20 02/12/21 tiotropium bromide 18 mcg capsule 18 mcg inhalation PRN PRN Allergy 06/13/20 02/06/21 with inhalation device Symptoms albuterol sulfate 0.63 mg/3 mL 0.63 mg inhalation Q4H PRN 11/23/20 02/06/21 solution for nebulization Shortness Of Breath fenofibrate nanocrystallized 145 145 mg PO DAILY 11/23/20 02/12/21 mg tablet insulin aspart U-100 100 unit/mL 35 unit SUBCUT TID 11/23/20 02/12/21 subcutaneous solution (Novolog U-100 Insulin aspart) losartan 50 mg tablet 50 mg PO DAILY 11/23/20 02/12/21 Previous Rx's Medication Instructions Recorded Disabled Parking Permit #1 ea 09/24/20 oxycodone 5 mg capsule 5 mg PO Q6H PRN pain #30 caps 11/27/20 oxycodone 5 mg capsule 5 mg PO Q6H PRN pain #60 caps 02/12/21 Allergies Allergy/AdvReac Type Severity Reaction Status Date / Time pseudoephedrine Allergy Severe ANAPHYLAXIS Verified 11/27/20 06:45 [From SUDAFED] crab Allergy Intermediate Rash Verified 02/12/21 06:44 amoxicillin [From AUGMENTIN] AdvReac Severe DIARRHEA Verified 11/27/20 06:45 clavulanic acid AdvReac Severe DIARRHEA Verified 11/27/20 06:45 [From AUGMENTIN] Review of Systems <LUTHER Santacruz - Last Filed: 08/24/22 16:15> Review of Systems ROS Unobtainable: All systems reviewed & are unremarkable except as noted in HPI and below Patient History <LUTHER Santacruz - Last Filed: 08/24/22 16:15> Medical History Asthma CAD (coronary artery disease) Cervical radiculopathy CHF (congestive heart failure) (~2014) Chronic back pain CVA (cerebral vascular accident) (~2010) Degenerative joint disease of knee Depression Diabetes type 2, controlled Diverticulitis Diverticulosis DJD (degenerative joint disease) Former smoker Hearing impaired History of chronic atrial fibrillation HLD (hyperlipidemia) HTN (hypertension) Paroxysmal A-fib Pulmonary edema Sleep apnea treated with nocturnal BiPAP Type II diabetes mellitus Surgical History H/O: vasectomy (~1971) History of arthroscopy of both shoulders History of carpal tunnel surgery of right wrist Hx of cervical spine surgery Hx of fusion of cervical spine (10/19/18) Hx of hand surgery Hx of lumbar discectomy (~2003) Hx of lumbar discectomy (~2010) Hx of lumbar discectomy (~2014) Hx of right inguinal hernia repair (~1983) S/P foot surgery, right (~2014) S/P left unicompartmental knee replacement (11/27/20) Status post trigger finger release Family History Other No pertinent family history Social History household members: spouse Smoking Status: Former smoker alcohol intake: current Smoking Status: Former smoker alcohol intake frequency: a few times a month Substance Use Type: does not use Exam <LUTHER Santacruz - Last Filed: 08/24/22 16:15> Initial Vital Signs Initial Vital Signs: Vital Signs Pulse Rate 77 08/24/22 14:11 Respiratory Rate 28 H 08/24/22 14:11 Blood Pressure 143/63 H 08/24/22 14:11 Pulse Oximetry 86 L 08/24/22 14:11 Oxygen Delivery Method Room Air 08/24/22 14:11 <Tye Elizabeth DO - Last Filed: 08/24/22 16:18> Initial Vital Signs Initial Vital Signs: Vital Signs Pulse Rate 77 08/24/22 14:11 Respiratory Rate 28 H 08/24/22 14:11 Blood Pressure 143/63 H 08/24/22 14:11 Pulse Oximetry 86 L 08/24/22 14:11 Oxygen Delivery Method Room Air 08/24/22 14:11 Course <Alisia CoelhoLUTHER - Last Filed: 08/24/22 16:15> Orders Ordered: ED Orders 08/24/22 14:22 Chest [XR chest 2V] Stat EKG-12 Lead Stat 08/24/22 14:23 Complete Blood Count AUTO DIFF Stat 08/24/22 14:38 Blood Culture Stat 08/24/22 14:58 C-Reactive Protein Quant Stat Comprehensive Metabolic Panel Stat Lactate (Lactic Acid) Stat NT-proBNP (BNP-Adult 18+) Stat Procalcitonin Stat Troponin & CK Cardiac Panel Stat 08/24/22 15:42 COVID19 -Nasal RAPID Stat Discontinued Medications Sodium Chloride (Normal Saline 0.9%) 500 mls @ 1,000 mls/hr IV BOLUS ONE Stop: 08/24/22 15:44 Last Admin: 08/24/22 16:03 Dose: 1,000 mls/hr Documented By: UZMA Vital Signs Vital signs: Vital Signs - 8 hr 08/24/22 14:16 08/24/22 15:16 08/24/22 14:11 Temperature 98.8 F Pulse Rate 74 Respiratory Rate 16 Blood Pressure 143/63 H 143/63 H Pulse Oximetry 93 89 L Oxygen Delivery Method Room Air Oxygen Flow Rate 08/24/22 14:11 08/24/22 14:30 08/24/22 14:31 Temperature Pulse Rate 77 69 68 Respiratory Rate 28 H Blood Pressure Pulse Oximetry 86 L 91 91 Oxygen Delivery Method Room Air Nasal Cannula Oxygen Flow Rate 2 08/24/22 14:31 08/24/22 15:00 08/24/22 15:01 Temperature Pulse Rate 69 Respiratory Rate 28 H Blood Pressure 116/54 L 112/56 L Pulse Oximetry 91 Oxygen Delivery Method Oxygen Flow Rate 08/24/22 15:01 08/24/22 15:30 08/24/22 15:41 Temperature Pulse Rate 69 65 63 Respiratory Rate 20 20 19 Blood Pressure Pulse Oximetry 90 L 92 91 Oxygen Delivery Method Oxygen Flow Rate 08/24/22 15:41 Temperature Pulse Rate Respiratory Rate Blood Pressure 91/54 L Pulse Oximetry Oxygen Delivery Method Oxygen Flow Rate <Tye Elizabeth DO - Last Filed: 08/24/22 16:18> Orders Ordered: ED Orders 08/24/22 14:22 Chest [XR chest 2V] Stat EKG-12 Lead Stat 08/24/22 14:23 Complete Blood Count AUTO DIFF Stat 08/24/22 14:38 Blood Culture Stat 08/24/22 14:58 C-Reactive Protein Quant Stat Comprehensive Metabolic Panel Stat Lactate (Lactic Acid) Stat NT-proBNP (BNP-Adult 18+) Stat Procalcitonin Stat Troponin & CK Cardiac Panel Stat 08/24/22 15:42 COVID19 -Nasal RAPID Stat Discontinued Medications Sodium Chloride (Normal Saline 0.9%) 500 mls @ 1,000 mls/hr IV BOLUS ONE Stop: 08/24/22 15:44 Last Admin: 08/24/22 16:03 Dose: 1,000 mls/hr Documented By: UZMA Vital Signs Vital signs: Vital Signs - 8 hr 08/24/22 14:16 08/24/22 15:16 08/24/22 14:11 Temperature 98.8 F Pulse Rate 74 Respiratory Rate 16 Blood Pressure 143/63 H 143/63 H Pulse Oximetry 93 89 L Oxygen Delivery Method Room Air Oxygen Flow Rate 08/24/22 14:11 08/24/22 14:30 08/24/22 14:31 Temperature Pulse Rate 77 69 68 Respiratory Rate 28 H Blood Pressure Pulse Oximetry 86 L 91 91 Oxygen Delivery Method Room Air Nasal Cannula Oxygen Flow Rate 2 08/24/22 14:31 08/24/22 15:00 08/24/22 15:01 Temperature Pulse Rate 69 Respiratory Rate 28 H Blood Pressure 116/54 L 112/56 L Pulse Oximetry 91 Oxygen Delivery Method Oxygen Flow Rate 08/24/22 15:01 08/24/22 15:30 08/24/22 15:41 Temperature Pulse Rate 69 65 63 Respiratory Rate 20 20 19 Blood Pressure Pulse Oximetry 90 L 92 91 Oxygen Delivery Method Oxygen Flow Rate 08/24/22 15:41 Temperature Pulse Rate Respiratory Rate Blood Pressure 91/54 L Pulse Oximetry Oxygen Delivery Method Oxygen Flow Rate MDM - SOB/Dyspnea <LUTHER Santacruz - Last Filed: 08/24/22 16:15> Lab Data 08/24/22 14:23 08/24/22 14:58 Labs: Lab Results 08/24/22 08/24/22 08/24/22 Range/Units 14:23 14:58 14:58 WBC 13.1 H (4.5-11.0) X10^3/uL RBC 4.15 L (4.5-5.9) X10^6/uL Hgb 12.1 L (13.5-17.5) g/dL Hct 37.7 L (41-53) % MCV 90.8 (80-100) fL MCH 29.1 (26-34) PG MCHC 32.1 (30-36) % RDW 15.3 H (11.6-14.8) % Plt Count 202 (150-400) X10^3/uL Neut % (Auto) 74.9 (50-75) % Lymph % (Auto) 13.8 L (25-40) % [place] % (Auto) 10.8 (3-14) % Eos % (Auto) 0.0 L (2-4) % Baso % (Auto) 0.5 (0-2) % Neut # (Auto) 9800 H (1807-2261) /uL Lymph # (Auto) 1800 (6874-7839) /uL [place] # (Auto) 1400 H (0-900) /uL Eos # (Auto) 0 (0-450) /uL Baso # (Auto) 100 (0-100) /uL Sodium 138 (137-145) mmol/L Potassium 3.8 (3.4-5.1) mmol/L Chloride 99 (98-107) mmol/L Carbon Dioxide 27 (22-32) mmol/L BUN 20 (9-20) mg/dL Creatinine 1.45 H (0.66-1.25) mg/dL Estimated GFR 50 L (>60) mL/min BUN/Creatinine Ratio 13.8 (6-22) Glucose 88 (80-110) mg/dL Lactate (0.7-2.1) mmol/L Calcium 9.4 (8.4-10.2) mg/dL Total Bilirubin 1.0 (0.2-1.3) mg/dL AST 29 (17-59) IU/L ALT 31 (<50) IU/L Alkaline Phosphatase 45 (38-126) U/L Total Creatine Kinase 145 (55-170) U/L CK-MB (CK-2) 1.19 (<2.37) ng/mL CK-MB (CK-2) Rel Index 0.8 L (1.5-5.0) % Troponin I < 0.012 (0.01-0.034) ng/mL C-Reactive Protein 4.3 H (<1.0) mg/dL NT-Pro-B Natriuret Pep 1560 H (<450) pg/mL Total Protein 7.3 (6.3-8.2) g/dL Albumin 4.0 (3.5-5.0) g/dL Globulin 3.3 (1.7-4.1) g/dL Albumin/Globulin Ratio 1.2 (1.0-2.8) Procalcitonin 0.08 (<0.5) ng/mL 08/24/22 Range/Units 14:58 WBC (4.5-11.0) X10^3/uL RBC (4.5-5.9) X10^6/uL Hgb (13.5-17.5) g/dL Hct (41-53) % MCV (80-100) fL MCH (26-34) PG MCHC (30-36) % RDW (11.6-14.8) % Plt Count (150-400) X10^3/uL Neut % (Auto) (50-75) % Lymph % (Auto) (25-40) % [place] % (Auto) (3-14) % Eos % (Auto) (2-4) % Baso % (Auto) (0-2) % Neut # (Auto) (7510-6174) /uL Lymph # (Auto) (0504-3724) /uL [place] # (Auto) (0-900) /uL Eos # (Auto) (0-450) /uL Baso # (Auto) (0-100) /uL Sodium (137-145) mmol/L Potassium (3.4-5.1) mmol/L Chloride (98-107) mmol/L Carbon Dioxide (22-32) mmol/L BUN (9-20) mg/dL Creatinine (0.66-1.25) mg/dL Estimated GFR (>60) mL/min BUN/Creatinine Ratio (6-22) Glucose (80-110) mg/dL Lactate 1.5 (0.7-2.1) mmol/L Calcium (8.4-10.2) mg/dL Total Bilirubin (0.2-1.3) mg/dL AST (17-59) IU/L ALT (<50) IU/L Alkaline Phosphatase (38-126) U/L Total Creatine Kinase (55-170) U/L CK-MB (CK-2) (<2.37) ng/mL CK-MB (CK-2) Rel Index (1.5-5.0) % Troponin I (0.01-0.034) ng/mL C-Reactive Protein (<1.0) mg/dL NT-Pro-B Natriuret Pep (<450) pg/mL Total Protein (6.3-8.2) g/dL Albumin (3.5-5.0) g/dL Globulin (1.7-4.1) g/dL Albumin/Globulin Ratio (1.0-2.8) Procalcitonin (<0.5) ng/mL Imaging Data Chest x-ray: Radiologist's Impression: PROCEDURE:? XR CHEST 2V ? INDICATIONS:? shortness of breath ? TECHNIQUE:? 2 views of the chest were acquired.? ? COMPARISON:? [facility], CR, XR CHEST 2V, 07/31/2018, 12:49. ? FINDINGS:? ? Surgical changes and devices:? None.? ? Lungs and pleura:? Bilateral perihilar infiltrates are seen consistent with pulmonary edema ? Mediastinum:? Mediastinal contours are normal.? Heart size is enlarged.? ? Bones and chest wall:? No suspicious bony abnormalities.? Soft tissues appear unremarkable.? ? IMPRESSION:? 1. Pulmonary edema, likely due to congestive heart failure, less likely a diffuse infectious process. 2. Cardiomegaly.? ? ? Dictated by: Blaine Snider M.D. on 08/24/2022 at 14:43 ? ? Approved by: Blaine Snider M.D. on 08/24/2022 at 14:44 ? MDM Narrative Medical decision making narrative: Chief Complaint: Shortness of breath with COVID Independent historian: Patient Differential diagnoses include but are not limited to: CHF exacerbation, hypoxia, COVID pneumonia, bacterial pneumonia, pleural effusion, pericarditis, myocarditis, cardiogenic shock sepsis, constipation, dehydration, metabolic acidosis, pulmonary embolus I have independently reviewed the patient's vital signs and nursing notes as well as prior records if available. Pertinent lab findings reviewed: Patient has a mild leukocytosis of 13.1 with a left shift, left shift, creatinine of 1.45 and decreased GFR of 50 without priors to compare to, total bilirubin is 1.0, total CK 45, troponin is negative for elevation, lactate of 1.5, BNP of 1560, procalcitonin 0.08, blood cultures obtained and are pending. Pertinent Imaging reviewed: Chest x-ray two-view shows bilateral perihilar infiltrates seen consistent with pulmonary edema, cardiomegaly Clinical decision rules or scores evaluated: Curb 65 with moderate risk for 30 day mortality Course of care: Patient appears quite fatigued and tired, he has a productive cough, sputum sample was obtained. He was ambulated and his pulse oximetry was 89 at best without supplemental O2 and increased shortness of breath with this exertion. Patient was ambulatory with increased shortness of breath, pulse oximeter read 89% on room air, he is now sitting up in bed, on 2 L nasal cannula satting 91%. He received a 500 mL bolus of normal saline for dehydration. Chest x-ray as mentioned above. Discussed admission with Dr. Daniels who accepts patient for admission. Patient was informed of lab and imaging results, pertinent diagnoses, consulting physicians, and treatment plan. I have spoken with the patient in regard to admission, patient understands and agrees. I have communicated the patient's evaluation and treatment plan to the admitting physician who agrees with admission. All questions answered at this time. COVID PCR is pending. Social considerations that may affect disposition: none Questions are addressed and there is agreement with the plan of admission. MIPS: This encounter doesn't have any diagnosis' associated with MIPS criteria. <Tye Elizabeth, DO - Last Filed: 08/24/22 16:18> Lab Data Labs: Lab Results 08/24/22 08/24/22 08/24/22 Range/Units 14:23 14:58 14:58 WBC 13.1 H (4.5-11.0) X10^3/uL RBC 4.15 L (4.5-5.9) X10^6/uL Hgb 12.1 L (13.5-17.5) g/dL Hct 37.7 L (41-53) % MCV 90.8 (80-100) fL MCH 29.1 (26-34) PG MCHC 32.1 (30-36) % RDW 15.3 H (11.6-14.8) % Plt Count 202 (150-400) X10^3/uL Neut % (Auto) 74.9 (50-75) % Lymph % (Auto) 13.8 L (25-40) % [place] % (Auto) 10.8 (3-14) % Eos % (Auto) 0.0 L (2-4) % Baso % (Auto) 0.5 (0-2) % Neut # (Auto) 9800 H (7433-3344) /uL Lymph # (Auto) 1800 (6145-1084) /uL [place] # (Auto) 1400 H (0-900) /uL Eos # (Auto) 0 (0-450) /uL Baso # (Auto) 100 (0-100) /uL Sodium 138 (137-145) mmol/L Potassium 3.8 (3.4-5.1) mmol/L Chloride 99 (98-107) mmol/L Carbon Dioxide 27 (22-32) mmol/L BUN 20 (9-20) mg/dL Creatinine 1.45 H (0.66-1.25) mg/dL Estimated GFR 50 L (>60) mL/min BUN/Creatinine Ratio 13.8 (6-22) Glucose 88 (80-110) mg/dL Lactate (0.7-2.1) mmol/L Calcium 9.4 (8.4-10.2) mg/dL Total Bilirubin 1.0 (0.2-1.3) mg/dL AST 29 (17-59) IU/L ALT 31 (<50) IU/L Alkaline Phosphatase 45 (38-126) U/L Total Creatine Kinase 145 (55-170) U/L CK-MB (CK-2) 1.19 (<2.37) ng/mL CK-MB (CK-2) Rel Index 0.8 L (1.5-5.0) % Troponin I < 0.012 (0.01-0.034) ng/mL C-Reactive Protein 4.3 H (<1.0) mg/dL NT-Pro-B Natriuret Pep 1560 H (<450) pg/mL Total Protein 7.3 (6.3-8.2) g/dL Albumin 4.0 (3.5-5.0) g/dL Globulin 3.3 (1.7-4.1) g/dL Albumin/Globulin Ratio 1.2 (1.0-2.8) Procalcitonin 0.08 (<0.5) ng/mL 08/24/22 Range/Units 14:58 WBC (4.5-11.0) X10^3/uL RBC (4.5-5.9) X10^6/uL Hgb (13.5-17.5) g/dL Hct (41-53) % MCV (80-100) fL MCH (26-34) PG MCHC (30-36) % RDW (11.6-14.8) % Plt Count (150-400) X10^3/uL Neut % (Auto) (50-75) % Lymph % (Auto) (25-40) % [place] % (Auto) (3-14) % Eos % (Auto) (2-4) % Baso % (Auto) (0-2) % Neut # (Auto) (3322-2354) /uL Lymph # (Auto) (5248-9491) /uL [place] # (Auto) (0-900) /uL Eos # (Auto) (0-450) /uL Baso # (Auto) (0-100) /uL Sodium (137-145) mmol/L Potassium (3.4-5.1) mmol/L Chloride (98-107) mmol/L Carbon Dioxide (22-32) mmol/L BUN (9-20) mg/dL Creatinine (0.66-1.25) mg/dL Estimated GFR (>60) mL/min BUN/Creatinine Ratio (6-22) Glucose (80-110) mg/dL Lactate 1.5 (0.7-2.1) mmol/L Calcium (8.4-10.2) mg/dL Total Bilirubin (0.2-1.3) mg/dL AST (17-59) IU/L ALT (<50) IU/L Alkaline Phosphatase (38-126) U/L Total Creatine Kinase (55-170) U/L CK-MB (CK-2) (<2.37) ng/mL CK-MB (CK-2) Rel Index (1.5-5.0) % Troponin I (0.01-0.034) ng/mL C-Reactive Protein (<1.0) mg/dL NT-Pro-B Natriuret Pep (<450) pg/mL Total Protein (6.3-8.2) g/dL Albumin (3.5-5.0) g/dL Globulin (1.7-4.1) g/dL Albumin/Globulin Ratio (1.0-2.8) Procalcitonin (<0.5) ng/mL Discharge Plan Departure Patient Disposition: Admitted As Inpatient Clinical Impression: Pneumonia due to COVID-19 virus, CHF (congestive heart failure), Shortness of Breath, SIRS (systemic inflammatory response syndrome), Pleural effusion, Hypoxia <Tye Elizabeth DO - Last Filed: 08/24/22 16:18> Cosign ED Attending Cosignature Attestation: Dr Elizabeth Co-Sign Statement: I was available for consultation during this patient's emergency department visit. This chart is signed by myself for administrative purposes only. I did not have direct contact with this patient during this visit. They were seen independently by the APC.
[2022-08-24 15:06] LABS: Add Manual Diff / Slide Review NO; Basophils Absolute Auto 100 /uL (0-100); Basophils Percent Auto 0.5 % (0-2); Eosinophils Absolute Auto 0 /uL (0-450); Hematocrit 37.7 % (41-53); Hemoglobin 12.1 g/dL (13.5-17.5); Lymphocytes Absolute Auto 1800 /uL (1100-4500); Lymphocytes Percent Auto 13.8 % (25-40); Mean Corpuscular HGB Conc 32.1 % (30-36); Mean Corpuscular Hemoglobin 29.1 PG (26-34); Mean Corpuscular Volume 90.8 fL (80-100); Monocytes Absolute Auto 1400 /uL (0-900); Monocytes Percent Auto 10.8 % (3-14); Neutrophils Absolute Auto 9800 /uL (1500-7000); Neutrophils Percent Auto 74.9 % (50-75); Platelet Count 202 X10^3/uL (150-400); Red Blood Cell Count 4.15 X10^6/uL (4.5-5.9); Red Cell Distribution Width 15.3 % (11.6-14.8); White Blood Cell Count 13.1 X10^3/uL (4.5-11.0)
[2022-08-24 15:26] LABS: Lactate (Lactic Acid) 1.5 mmol/L (0.7-2.1)
[2022-08-24 15:27] LABS: Alanine Aminotransferase 31 IU/L (<50); Albumin Globulin Ratio 1.2 (1.0-2.8); Alkaline Phosphatase 45 U/L (38-126); Aspartate Aminotransferase 29 IU/L (17-59); BUN Creatinine Ratio 13.8 (6-22); Blood Urea Nitrogen 20 mg/dL (9-20); Calcium 9.4 mg/dL (8.4-10.2); Carbon Dioxide 27 mmol/L (22-32); Chloride 99 mmol/L (98-107); Creatine Kinase 145 U/L (55-170); Estimated Glomerular Filt Rate 50 mL/min (>60); Globulin 3.3 g/dL (1.7-4.1); Glucose 88 mg/dL (80-110); HEMOLYSIS < 15 (0-50); Potassium 3.8 mmol/L (3.4-5.1); Sodium 138 mmol/L (137-145); Total Protein 7.3 g/dL (6.3-8.2)
[2022-08-24 15:39] LABS: NT-proBNP (BNP-Adult 18+) 1560 pg/mL (<450); Troponin I < 0.012 ng/mL (0.01-0.034)
[2022-08-24 15:42] LABS: CKMB % Relative Index 0.8 % (1.5-5.0); Creatine Kinase MB 1.19 ng/mL (<2.37)
[2022-08-24 15:44] LABS: Procalcitonin 0.08 ng/mL (<0.5)
[2022-08-24] MEDS: SODIUM CHLORIDE 0.9% 500 ML 1000 ML IV (16:03)
[2022-08-24 16:05] LABS: C-Reactive Protein Quant 4.3 mg/dL (<1.0)
[2022-08-24 16:20] LABS: COVID19 -Nasal RAPID Negative (Negative)
--- NOTE | 2022-08-24 18:54 | PC.NURSE ---
pt admitted to rm 215 from er, alert and oriented x4 bed alarmed call light within reach and at bedside, oriented to room and hospital.
[2022-08-24] MEDS: DOCUSATE 100 MG CAPSULE PO (21:03)
[2022-08-24] MEDS: APIXABAN 5 MG TABLET PO (21:03)
[2022-08-24] MEDS: TAMSULOSIN 0.4 MG CAPSULE PO (21:03)
[2022-08-24] MEDS: buPROPion SR 150 MG TAB PO (21:04)
[2022-08-24] MEDS: ATORVASTATIN 20 MG TABLET 80 MG PO (21:04)
--- NOTE | 2022-08-24 23:14 | PC.NURSE ---
Addendum entered by Jeremy Mota R.N. 08/25/22 01:52: Pt tested positive for Rhino/entero virus, Droplet precautions in place. Original Note: 2009: Pt states had not urinated since 1100, tried to urinated, unsuccessful, bladder scan showing about 370cc. Blood sugar 69, 1 orange juice and gila crackers given. Dr. Daniels notified. New order to reduce lantus from 76 to 60 units and flomax 0.4mg daily bedtime. 2053: Blood sugar 68, 1 orange juice and egg salad sandwich given. 2125: Pt tried to urinate, still unable to, bladder scan showed 670. Dr. Daniels notified w/ new order of straight cath. 2215: Blood sugar 116, Dr. daniels notified.
[2022-08-25] VITALS (14 sets, daily range): BP systolic 111–131; BP diastolic 46–58; PULSE 63–95; RESP 17–22; TEMP 36.7–37.8; O2SAT 91–95
[2022-08-25 00:44] LABS: Adenovirus Not Detected (Not Detect); Coronavirus 229E Not Detected (Not Detect); Coronavirus HKU1 Not Detected (Not Detect); Coronavirus NL 63 Not Detected (Not Detect); Coronavirus OC43 Not Detected (Not Detect); Human Metapneumovirus Not Detected (Not Detect); Human Rhinovirus/Enterovirus Detected (Not Detect); SARS- CoV-2 Not Detected (Not Detecte)
[2022-08-25 00:45] LABS: B. parapertussis Not Detected (Not Detecte); Bordetella pertussis Not Detected (Not Detecte); Chlamydophila pneumoniae Not Detected (Not Detect); Influenza A Not Detected (Not Detect); Influenza B Not Detected (Not Detect); Mycoplasma pneumoniae Not Detected (Not Detect); Parainfluenza Virus 1 Not Detected (Not Detect); Parainfluenza Virus 2 Not Detected (Not Detect); Parainfluenza Virus 3 Not Detected (Not Detect); Parainfluenza Virus 4 Not Detected (Not Detect); Respiratory Syncytial Virus Not Detected (Not Detect)
[2022-08-25] MEDS: ACETAMINOPHEN 325 MG TABLET 650 MG PO ×2 (03:28→13:06)
[2022-08-25] MEDS: INSULIN LISPRO 100 UNIT/ML 3ML VIAL 35 UNIT SUBCUT (08:39)
--- NOTE | 2022-08-25 09:11 | P.HP_ITS ---
History of Present Illness History of Present Illness Date Patient Seen: 08/25/22 Time Patient Seen: 08:50 Date of Onset of Symptoms: 08/18/22 Chief complaint: Covid positive, SOB, coughing up, wheezing, ect Narrative: CC: I feel awful Pt started ill a week ago had positive home covid tests x2 on day 4 of paxlovid felt worsening shortness of breath came in was hypoxic in ED admitted for respiratory support blowing a lot of snot also tested positive for rhinivirus feeling poorly lots of body aches no appetite BGs running soft overnight despite reduced insulin dose breathing ok on 4L via NC rather squeaky lungs Patient History Medical History Asthma CAD (coronary artery disease) Cervical radiculopathy CHF (congestive heart failure) (~2014) Chronic back pain CVA (cerebral vascular accident) (~2010) Degenerative joint disease of knee Depression Diabetes type 2, controlled Diverticulitis Diverticulosis DJD (degenerative joint disease) Former smoker Hearing impaired History of chronic atrial fibrillation HLD (hyperlipidemia) HTN (hypertension) Paroxysmal A-fib Pulmonary edema Sleep apnea treated with nocturnal BiPAP Type II diabetes mellitus Surgical History H/O: vasectomy (~1971) History of arthroscopy of both shoulders History of carpal tunnel surgery of right wrist Hx of cervical spine surgery Hx of fusion of cervical spine (10/19/18) Hx of hand surgery Hx of lumbar discectomy (~2003) Hx of lumbar discectomy (~2010) Hx of lumbar discectomy (~2014) Hx of right inguinal hernia repair (~1983) S/P foot surgery, right (~2014) S/P left unicompartmental knee replacement (11/27/20) Status post trigger finger release Family & Social History Family History Other No pertinent family history Social History: household members spouse Prior Living Arrangements House Safety & Behavioral: Feels Safe in Current Yes Environment Been Physically Hurt or No Threatened By a Person Tobacco & Substance use: Tobacco type cigarettes Smoking Status Former smoker alcohol intake current alcohol intake frequency a few times a month Substance Use Type does not use Meds Home Medications and Allergies Home Medications Medication Instructions Recorded Confirmed Type albuterol sulfate 90 mcg/actuation 2 puff inhalation Q4-6H PRN Asthma 10/11/18 08/24/22 History aerosol inhaler (ProAir HFA) apixaban 5 mg tablet (Eliquis) 5 mg PO BID 10/11/18 08/24/22 History atorvastatin 80 mg tablet 80 mg PO BEDTIME 10/11/18 08/24/22 History bupropion HCl 150 mg tablet,12 hr 150 mg PO BID 10/11/18 08/24/22 History sustained-release fluticasone furoate 27.5 1 spray intranasal BID 10/11/18 08/24/22 History mcg/actuation nasal spray,suspension (Flonase Sensimist) insulin glargine 100 unit/mL (3 See Rx Instructions .Route .COMPLEX 10/11/18 08/24/22 History mL) subcutaneous pen (Lantus Solostar U-100 Insulin) loratadine 10 mg tablet 10 mg PO DAILY 10/11/18 08/24/22 History amlodipine 10 mg tablet 10 mg PO DAILY 05/21/20 08/24/22 History montelukast 10 mg tablet 10 mg PO DAILY 05/21/20 08/24/22 History (Singulair) gabapentin 300 mg capsule 600 mg PO TID 06/13/20 08/24/22 History Disabled Parking Permit #1 ea 09/24/20 08/24/22 Rx albuterol sulfate 0.63 mg/3 mL 0.63 mg inhalation Q4H PRN 11/23/20 08/24/22 History solution for nebulization Shortness Of Breath fenofibrate nanocrystallized 145 145 mg PO DAILY 11/23/20 08/24/22 History mg tablet insulin aspart U-100 100 unit/mL 35 unit SUBCUT TID 11/23/20 08/24/22 History subcutaneous solution (Novolog U-100 Insulin aspart) losartan 50 mg tablet 50 mg PO DAILY 11/23/20 08/24/22 History metoprolol succinate 100 mg 100 mg PO DAILY 08/24/22 08/24/22 History tablet,extended release 24 hr Allergies Allergy/AdvReac Type Severity Reaction Status Date / Time pseudoephedrine Allergy Severe ANAPHYLAXIS Verified 11/27/20 06:45 [From SUDAFED] crab Allergy Intermediate Rash Verified 02/12/21 06:44 amoxicillin [From AUGMENTIN] AdvReac Severe DIARRHEA Verified 11/27/20 06:45 clavulanic acid AdvReac Severe DIARRHEA Verified 11/27/20 06:45 [From AUGMENTIN] Review of Systems Review of Systems Narrative: all systems reviewed and negative except as otherwise documented in HPI Exam Vital Signs (past 8 hours): - 08/25/22 03:28 08/25/22 03:31 08/25/22 06:00 Temperature 100.1 F H 100.1 F H 98.1 F Pulse Rate 73 Respiratory Rate 20 Blood Pressure 123/58 L Pulse Oximetry 92 Oxygen Flow Rate 3 08/25/22 07:35 Temperature 98.0 F Pulse Rate 64 Respiratory Rate 17 Blood Pressure 111/49 L Pulse Oximetry 95 Oxygen Flow Rate 3 Fraction of Inspired Oxygen 28 SaO2/FiO2 Ratio 328 Oxygen Delivery Method High Flow Nasal Cannula Oxygen Flow Rate 3 Narrative Exam Narrative: laying in bed with NC blowing snot Const General: well developed and ill appearing HENMT Head: atraumatic Other: clear rhinorrhea Eyes Other: watery eyes Resp Other: squeaky and junky, moderate wheeze Cardio Other: a little tachycardic, regular rhythm, S1/S2 GI Other: soft nontender nondistended Neuro General: patient alert, patient awake, patient oriented x3 and moves all extremities Extrem General: pedal edema (1+) Objective Labs 08/24/22 14:23 08/24/22 14:58 Labs: Laboratory Results - last 24 hr 08/24/22 08/24/22 08/24/22 14:23 14:58 14:58 WBC 13.1 H RBC 4.15 L Hgb 12.1 L Hct 37.7 L MCV 90.8 MCH 29.1 MCHC 32.1 RDW 15.3 H Plt Count 202 Neut % (Auto) 74.9 Lymph % (Auto) 13.8 L Isabella % (Auto) 10.8 Eos % (Auto) 0.0 L Baso % (Auto) 0.5 Neut # (Auto) 9800 H Lymph # (Auto) 1800 Isabella # (Auto) 1400 H Eos # (Auto) 0 Baso # (Auto) 100 Sodium 138 Potassium 3.8 Chloride 99 Carbon Dioxide 27 BUN 20 Creatinine 1.45 H Estimated GFR 50 L BUN/Creatinine Ratio 13.8 Glucose 88 Lactate Calcium 9.4 Total Bilirubin 1.0 AST 29 ALT 31 Alkaline Phosphatase 45 Total Creatine Kinase 145 CK-MB (CK-2) 1.19 CK-MB (CK-2) Rel Index 0.8 L Troponin I < 0.012 C-Reactive Protein 4.3 H NT-Pro-B Natriuret Pep 1560 H Total Protein 7.3 Albumin 4.0 Globulin 3.3 Albumin/Globulin Ratio 1.2 Procalcitonin 0.08 Chlamy pneumoniae PCR Adenovirus (PCR) B. pertussis DNA (PCR) B.parapertussis DNA PCR Coronavirus OC43 (PCR) Coronavirus HKU1 (PCR) Coronavirus 229E (PCR) SARS-CoV-2 (PCR) Coronavirus NL63 (PCR) Human Metapneumovir PCR Influenza Type A (PCR) Influenza Type B (PCR) M. pneumoniae (PCR) Parainfluenza 1 (PCR) Parainfluenza 2 (PCR) Parainfluenza 3 (PCR) Parainfluenza 4 (PCR) RSV (PCR) Entero/Rhino (PCR) 08/24/22 08/24/22 08/24/22 14:58 15:42 23:45 WBC RBC Hgb Hct MCV MCH MCHC RDW Plt Count Neut % (Auto) Lymph % (Auto) Isabella % (Auto) Eos % (Auto) Baso % (Auto) Neut # (Auto) Lymph # (Auto) Isabella # (Auto) Eos # (Auto) Baso # (Auto) Sodium Potassium Chloride Carbon Dioxide BUN Creatinine Estimated GFR BUN/Creatinine Ratio Glucose Lactate 1.5 Calcium Total Bilirubin AST ALT Alkaline Phosphatase Total Creatine Kinase CK-MB (CK-2) CK-MB (CK-2) Rel Index Troponin I C-Reactive Protein NT-Pro-B Natriuret Pep Total Protein Albumin Globulin Albumin/Globulin Ratio Procalcitonin Chlamy pneumoniae PCR Not detected Adenovirus (PCR) Not detected B. pertussis DNA (PCR) Not detected B.parapertussis DNA PCR Not detected Coronavirus OC43 (PCR) Not detected Coronavirus HKU1 (PCR) Not detected Coronavirus 229E (PCR) Not detected SARS-CoV-2 (PCR) Negative Not detected Coronavirus NL63 (PCR) Not detected Human Metapneumovir PCR Not detected Influenza Type A (PCR) Not detected Influenza Type B (PCR) Not detected M. pneumoniae (PCR) Not detected Parainfluenza 1 (PCR) Not detected Parainfluenza 2 (PCR) Not detected Parainfluenza 3 (PCR) Not detected Parainfluenza 4 (PCR) Not detected RSV (PCR) Not detected Entero/Rhino (PCR) Detected H Assessment & Plan Assessment & Plan narrative: #Covid-19 s/p outpt tx with paxlovid w/ home positive tests, sick for a week now, s/p vaxx isolation precautions - will give a touch of lasix today #rhinoviral infection, concurrent continue supportive care #hx of COPD continue singulair, pt on multiple inhalers at home, continue duonebs here #IDDM BG running soft despite decreased doses of insulin he usually takes quite a lot, 70U long acting, 35U premeal Will reduce these doses as needed appetite reduced in setting of covid encourage eating avoid lows #Hypertension stable continue home meds #hyperlipidemia stable continue home meds #hx of afib RRR, continue home eliquis #MDD stable continue bupropion mood ok today under circumstances feels miserable Dispo: requiring supplemental oxygen, covid may have yet to fully declare itself, not ready to go home yet PCP: Jeremiah MDM: Celia Christie [phone] code: DNR diet: diabetic DVT ppx: eliquis Time Spent With Patient Critical Care time: I spent a total of [] minutes of critical care time on this patient's care today; this time is exclusive of procedural time. Quality VTE Deep Vein Thrombosis/Pulmonary Embolism Present on Admission: No
[2022-08-25] MEDS: MONTELUKAST 10 MG TABLET PO (10:09)
[2022-08-25] MEDS: LORATADINE 10 MG TABLET PO (10:09)
[2022-08-25] MEDS: METOPROLOL ER 50 MG TABLET 100 MG PO (10:09)
[2022-08-25] MEDS: buPROPion SR 150 MG TAB PO ×2 (10:10→20:39)
[2022-08-25] MEDS: APIXABAN 5 MG TABLET PO ×2 (10:10→20:39)
[2022-08-25] MEDS: DOCUSATE 100 MG CAPSULE PO ×2 (10:10→20:39)
[2022-08-25] MEDS: FENOFIBRATE, MICRONIZED 67 MG CAPSULE 201 MG PO (10:10)
[2022-08-25] MEDS: FUROSEMIDE 40 MG/4 ML VIAL IV (10:13)
[2022-08-25] MEDS: BUDESONIDE 0.5 MG/2 ML NEB INH ×2 (10:20→19:39)
[2022-08-25] MEDS: ALBUTEROL/IPRATROPIUM 3 ML AMPUL INH (10:20)
[2022-08-25] MEDS: ALBUTEROL 2.5 MG/3 ML NEB (ADULT) INH ×3 (12:48→19:39)
--- NOTE | 2022-08-25 12:50 | CM.DANOTE ---
Patient is a 77 yo male who was admitted on 08/24/22 for SOB/Wheezing. Pt has [employer] - It's what's in store for insurance and his PCP is Dr. Rickey Daniels. EMR was reviewed. Per MD, pt tested positive for COVID with a home test 5 days ago and started on outpt Paxlovid but admitted after SOB and CHF and possible COVID pneumonia but PCR is COVID negative but Rhino+. Per MD and RN, pt currently on supplemental oxygen, still coughing and SOB and not medically stable to discharge yet and per RN pt is independ in room. No PT needs identified at this time. Pt resides in [place] with his spouse and is quite independent at baseline and drives. Spouse currently tested positive for COVID also on a home test. Plan: SW to follow for plan of d/c home via spouse POV when medically stable and to r/o and HH needs although pt may not meet criteria for homebound for HH. 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 Yes Advance Directives on File No History Provided By Patient,Significant Other, Medical Record Has Patient been admitted in last 30 No days? Prior Living Arrangements House Household Members spouse Type of transporation used prior to Drives own vehicle admit Independent with ADL's Yes Is patient alert and oriented? Yes Caregiver for Another No Patient/Family Preference Home with Home Health Barriers to Discharge No Discharge Plan Home Transportation Arrangement Spouse bedside and likely can provide transport at d/c. Additional Comment Waiting for further PT to determine HH vs outpt Review Status In Process Please Provide Date Initial DC 08/25/22 Assessment Was Performed Next Review Type Continued Stay Review
[2022-08-25] MEDS: INSULIN LISPRO 100 UNIT/ML 3ML VIAL 20 UNIT SUBCUT ×2 (13:06→17:24)
[2022-08-25] MEDS: TAMSULOSIN 0.4 MG CAPSULE PO (20:39)
[2022-08-25] MEDS: ATORVASTATIN 20 MG TABLET 80 MG PO (20:39)
[2022-08-26] VITALS (13 sets, daily range): BP systolic 107–124; BP diastolic 38–58; PULSE 63–71; RESP 12–20; TEMP 36.4–37.3; O2SAT 92–98
[2022-08-26] MEDS: ONDANSETRON 4 MG/2 ML INJ IV (05:30)
[2022-08-26] MEDS: ACETAMINOPHEN 325 MG TABLET 650 MG PO (05:30)
--- NOTE | 2022-08-26 06:40 | PC.NURSE ---
at approx 2030: pt bs 62, one orange juice and 1/2 pb&j [address] scall[address] Velásquez made aware. 2100: Bs 88. Dr. Velásquez aware. 0630: Blood pressure 120/34 (60) and 114/34 (60) HR 63 93% on 3L NC. Dr. Velásquez made aware. Stated no new orders at this time but she will inform Dr. Daniels to address SCOT.
--- NOTE | 2022-08-26 08:24 | PM.PN.1 ---
Subjective Subjective Interval history: Patient seen in follow-up of acute respiratory failure diabetes and renal failure. Patient overall feeling much better today. Appetite is better. Cough continues to happen but no other changes. Otherwise feeling well. Exam Vital Signs (past 8 hours): - 08/26/22 00:29 08/26/22 04:17 08/26/22 06:38 Temperature 99.1 F Pulse Rate 69 67 63 Respiratory Rate 18 Blood Pressure 121/58 L 124/52 L 120/38 L Pulse Oximetry 93 93 Oxygen Delivery Method Oxygen Flow Rate 2 08/26/22 08:00 Temperature Pulse Rate Respiratory Rate Blood Pressure Pulse Oximetry Oxygen Delivery Method Nasal Cannula Oxygen Flow Rate Fraction of Inspired Oxygen 28 SaO2/FiO2 Ratio 328 Oxygen Delivery Method Nasal Cannula Oxygen Flow Rate 2 Narrative Exam Narrative: Alert male smiling interactive in no acute distress Lungs are clear heart regular rate and rhythm Objective Labs 08/24/22 14:23 08/24/22 14:58 [facility] Medical History Asthma CAD (coronary artery disease) Cervical radiculopathy CHF (congestive heart failure) (~2014) Chronic back pain CVA (cerebral vascular accident) (~2010) Degenerative joint disease of knee Depression Diabetes type 2, controlled Diverticulitis Diverticulosis DJD (degenerative joint disease) Former smoker Hearing impaired History of chronic atrial fibrillation HLD (hyperlipidemia) HTN (hypertension) Paroxysmal A-fib Pulmonary edema Sleep apnea treated with nocturnal BiPAP Type II diabetes mellitus Surgical History H/O: vasectomy (~1971) History of arthroscopy of both shoulders History of carpal tunnel surgery of right wrist Hx of cervical spine surgery Hx of fusion of cervical spine (10/19/18) Hx of hand surgery Hx of lumbar discectomy (~2003) Hx of lumbar discectomy (~2010) Hx of lumbar discectomy (~2014) Hx of right inguinal hernia repair (~1983) S/P foot surgery, right (~2014) S/P left unicompartmental knee replacement (11/27/20) Status post trigger finger release Family History Other No pertinent family history Social History (Reviewed 08/24/22 @ 14:28 by Alisia Coelho [facility]) household members: spouse Smoking Status: Former smoker alcohol intake: current Assessment & Plan Assessment & Plan narrative: Acute respiratory failure with hypoxia. Probably secondary to combination of viral etiologies. Continue therapy. Improving. Hope off oxygen by tomorrow. Certainly reassuring exam today. Clinically feeling better. Re-evaluate a.m.. COVID-19 status post packs of treatment. Will continue observation. No other change. Rhino virus infection. Concurrent. Continue supportive care. Renal failure. Unclear whether acute or chronic. Recheck a.m.. History of COPD. Stable at this time. Continue DuoNebs. Insulin-dependent diabetes mellitus. Patient has been having low blood sugars his insulin has been cut back. Yesterday had no appetite today seems to be having increased appetite. Sugars probably will increase but will see how things go. And re-evaluate as the day goes and tomorrow. Maybe able to go back to usual dose. Hypertension. Appears to be stable slight decrease in diastolic but otherwise no change Hyperlipidemia. Stable. History of AFib. Stable. No other change. History of coronary artery disease. No evidence of issue. Will follow. Disposition. Hopefully patient will continue to improve. Certainly clinically today is much improved. And potentially discharge tomorrow will see how things go today. Discussed with patient he understands. Time Spent With Patient Critical Care time: I spent a total of [] minutes of critical care time on this patient's care today; this time is exclusive of procedural time. Quality VTE Deep Vein Thrombosis/Pulmonary Embolism Present on Admission: No
[2022-08-26] MEDS: BUDESONIDE 0.5 MG/2 ML NEB INH ×2 (09:26→21:03)
[2022-08-26] MEDS: ALBUTEROL 2.5 MG/3 ML NEB (ADULT) INH ×3 (09:26→21:03)
[2022-08-26] MEDS: METOPROLOL ER 50 MG TABLET 100 MG PO (09:32)
[2022-08-26] MEDS: LORATADINE 10 MG TABLET PO (09:33)
[2022-08-26] MEDS: buPROPion SR 150 MG TAB PO ×2 (09:33→21:15)
[2022-08-26] MEDS: FENOFIBRATE, MICRONIZED 67 MG CAPSULE 201 MG PO (09:33)
[2022-08-26] MEDS: APIXABAN 5 MG TABLET PO ×2 (09:33→21:15)
[2022-08-26] MEDS: MONTELUKAST 10 MG TABLET PO (09:33)
[2022-08-26] MEDS: INSULIN LISPRO 100 UNIT/ML 3ML VIAL 20 UNIT SUBCUT ×3 (09:34→17:23)
[2022-08-26] MEDS: TAMSULOSIN 0.4 MG CAPSULE PO (21:14)
[2022-08-26] MEDS: ATORVASTATIN 20 MG TABLET 80 MG PO (21:15)
[2022-08-26] MEDS: DOCUSATE 100 MG CAPSULE PO (21:15)
[2022-08-26] MEDS: HYDROCODONE/ACET 5/325 TABLET 1 TAB PO (21:15)
[2022-08-26] MEDS: INSULIN GLARGINE 100 UNIT/ML 3ML PEN 40 UNIT SUBCUT (21:17)
--- NOTE | 2022-08-26 23:53 | PC.NURSE ---
REPORTED to nurse MAP and BP
[2022-08-27] MEDS: ACETAMINOPHEN 325 MG TABLET 650 MG PO (01:17)
[2022-08-27 03:00] VITALS: BP 130/51; PULSE 64; TEMP 36.9; O2SAT 94
[2022-08-27 06:56] LABS: BUN Creatinine Ratio 19.4 (6-22); Blood Urea Nitrogen 21 mg/dL (9-20); Calcium 9.1 mg/dL (8.4-10.2); Carbon Dioxide 27 mmol/L (22-32); Chloride 101 mmol/L (98-107); Estimated Glomerular Filt Rate > 60 mL/min (>60); Glucose 146 mg/dL (80-110); HEMOLYSIS < 15 (0-50); Sodium 135 mmol/L (137-145)
[2022-08-27] MEDS: MONTELUKAST 10 MG TABLET PO (08:42)
[2022-08-27] MEDS: FENOFIBRATE, MICRONIZED 67 MG CAPSULE 201 MG PO (08:42)
[2022-08-27 08:43] VITALS: BP 130/54; PULSE 64
[2022-08-27] MEDS: LORATADINE 10 MG TABLET PO (08:43)
[2022-08-27] MEDS: METOPROLOL ER 50 MG TABLET 100 MG PO (08:43)
[2022-08-27] MEDS: buPROPion SR 150 MG TAB PO (08:43)
[2022-08-27] MEDS: APIXABAN 5 MG TABLET PO (08:43)
[2022-08-27] MEDS: INSULIN LISPRO 100 UNIT/ML 3ML VIAL 20 UNIT SUBCUT (08:44)
[2022-08-27 08:50] VITALS: BP 130/54; PULSE 64; RESP 16; TEMP 36.4; O2SAT 97
[2022-08-27 09:11] VITALS: PULSE 75; RESP 16; O2SAT 96
[2022-08-27] MEDS: ALBUTEROL 2.5 MG/3 ML NEB (ADULT) INH (09:11)
[2022-08-27] MEDS: BUDESONIDE 0.5 MG/2 ML NEB INH (09:11)
--- NOTE | 2022-08-27 10:07 | PM.DS.1 ---
History of Present Illness History of Present Illness Date Patient Seen: 08/27/22 Time Patient Seen: 08:40 Date of Onset of Symptoms: 08/18/22 Chief complaint: Covid positive, SOB, coughing up, wheezing, ect Narrative: CC: Can I go home? O2 status improved to 2L via NC appetite improved ate all breakfast able to stand and ambulate feeling antsy Discharge Providers Provider Date of admission: 08/24/22 16:53 Discharge Date: 08/27/22 Primary care physician: Rickey Daniels MD Discharge provider: Rickey Daniels MD Summary Hospital Course Discharge Diagnosis: Acute respiratory failure with hypoxia COVID-19 Rhino virus infection acute renal failure Hx of COPD Insulin-dependent diabetes mellitus. Hypertension Hyperlipidemia History of AFib History of coronary artery disease. Hospital Course: Pt started ill a week ago had positive home covid tests x2 on day 4 of paxlovid felt worsening shortness of breath came in was hypoxic in ED admitted for respiratory support blowing a lot of snot also tested positive for rhinivirus feeling poorly lots of body aches no appetite BGs running soft overnight despite reduced insulin dose breathing ok on 4L via NC rather squeaky lungs Exam Vital Signs (past 8 hours): - 08/27/22 03:00 08/27/22 08:43 08/27/22 08:50 Temperature 98.4 F 97.5 F L Pulse Rate 64 64 64 Respiratory Rate 16 Blood Pressure 130/51 L 130/54 L 130/54 L Pulse Oximetry 94 97 Oxygen Delivery Method Oxygen Flow Rate 2.5 08/27/22 09:11 Temperature Pulse Rate 75 Respiratory Rate 16 Blood Pressure Pulse Oximetry 96 Oxygen Delivery Method Room Air Oxygen Flow Rate Fraction of Inspired Oxygen 28 SaO2/FiO2 Ratio 328 Oxygen Delivery Method Room Air Oxygen Flow Rate 2.5 Narrative Exam Narrative: sitting in chair finishing breakfast Const Other: tired but alert Eyes General: appearance normal, both eyes and all related structures Resp Other: moving air well on minimal O2,via NC clear to auscultation bilaterally Cardio Other: regular rate, S1/S2 GI Other: soft nontender nondistended Neuro General: patient alert, patient awake, patient oriented x3 and moves all extremities Objective Labs 08/24/22 14:23 08/27/22 05:21 Labs: Laboratory Results - last 24 hr 08/27/22 05:21 Sodium 135 L Potassium 4.0 Chloride 101 Carbon Dioxide 27 BUN 21 H Creatinine 1.08 Estimated GFR > 60 BUN/Creatinine Ratio 19.4 Glucose 146 H Calcium 9.1 PFSH Medical History Asthma CAD (coronary artery disease) Cervical radiculopathy CHF (congestive heart failure) (~2014) Chronic back pain CVA (cerebral vascular accident) (~2010) Degenerative joint disease of knee Depression Diabetes type 2, controlled Diverticulitis Diverticulosis DJD (degenerative joint disease) Former smoker Hearing impaired History of chronic atrial fibrillation HLD (hyperlipidemia) HTN (hypertension) Paroxysmal A-fib Pulmonary edema Sleep apnea treated with nocturnal BiPAP Type II diabetes mellitus Surgical History H/O: vasectomy (~1971) History of arthroscopy of both shoulders History of carpal tunnel surgery of right wrist Hx of cervical spine surgery Hx of fusion of cervical spine (10/19/18) Hx of hand surgery Hx of lumbar discectomy (~2003) Hx of lumbar discectomy (~2010) Hx of lumbar discectomy (~2014) Hx of right inguinal hernia repair (~1983) S/P foot surgery, right (~2014) S/P left unicompartmental knee replacement (11/27/20) Status post trigger finger release Family History Other No pertinent family history Social History household members: spouse Smoking Status: Former smoker alcohol intake: current Discharge Assessment & Plan Assessment and Plan Assessment: Acute respiratory failure with hypoxia.? Probably secondary to combination of viral etiologies.? Continue therapy.? Improving.? Hope off oxygen by tomorrow.? Certainly reassuring exam today.? Clinically feeling better.? Re-evaluate a.m..? COVID-19 status post packs of treatment.? Will continue observation.? No other change.? Rhino virus infection.? Concurrent.? Continue supportive care.? Renal failure.? Unclear whether acute or chronic.? Recheck a.m..? History of COPD.? Stable at this time.? Continue DuoNebs.? Insulin-dependent diabetes mellitus.? Patient has been having low blood sugars his insulin has been cut back.? Yesterday had no appetite today seems to be having increased appetite.? Sugars probably will increase but will see how things go.? And re-evaluate as the day goes and tomorrow.? Maybe able to go back to usual dose.? Hypertension.? Appears to be stable slight decrease in diastolic but otherwise no change Hyperlipidemia.? Stable.? History of AFib.? Stable.? No other change.? History of coronary artery disease.? No evidence of issue.? Will follow.? Dispo: dc home today without supplemental O2 time spent on discharge: 35 min Discharge Plan Discharge Plan Patient Disposition: Home Provider Discharge Comment: continue reduced insulin doses as appetite improves Discharge orders & Medications Prescriptions: New insulin glargine [Lantus Solostar U-100 Insulin] 100 unit/mL (3 mL) Insulin Pen 40 unit SUBCUT BEDTIME Qty: 1 0RF Continued atorvastatin 80 mg Tablet 80 mg PO BEDTIME albuterol sulfate [ProAir HFA] 90 mcg/actuation Hfa Aerosol Inhaler 2 puff INHALATION Q4-6H PRN (Reason: Asthma) loratadine 10 mg Tablet 10 mg PO DAILY Flonase Sensimist 27.5 mcg/actuation [place],Suspension 1 spray INTRANASAL BID Eliquis 5 mg Tablet 5 mg PO BID bupropion HCl 150 mg Tablet Sustained-Release 12 Hr 150 mg PO BID losartan 50 mg Tablet 50 mg PO DAILY albuterol sulfate 0.63 mg/3 mL Solution For Nebulization 0.63 mg INHALATION Q4H PRN (Reason: Shortness Of Breath) insulin aspart U-100 [Novolog U-100 Insulin aspart] 100 unit/mL Solution 35 unit SUBCUT TID Patient Comments: 35 units Rx Instructions: With meals fenofibrate nanocrystallized 145 mg Tablet 145 mg PO DAILY metoprolol succinate 100 mg tablet extended release 24 hr 100 mg PO DAILY montelukast [Singulair] 10 mg tablet 10 mg PO DAILY Rx Instructions: Takes each evening amlodipine 10 mg tablet 10 mg PO DAILY (DME) Disabled Parking Permit See Rx Instructions .ROUTE .MEDSUPPLY Qty: 1 0RF Rx Instructions: Patient qualifies for disabled parking as per the attached form. gabapentin 300 mg capsule 600 mg PO TID Discontinued insulin glargine [Lantus Solostar U-100 Insulin] 100 unit/mL (3 mL) Insulin Pen See Rx Instructions .ROUTE .COMPLEX Patient Comments: pt took 70 units Rx Instructions: takes 70u if CBG 150 or less takes 76u if CBG greater than 150 Follow up/Referrals: Rickey Daniels MD [Primary Care Provider] - Visit Report/Discharge Packet Instructions: DI for Pneumonia -- Adult Stand Alone Forms: Patient Portal/API, Stroke Signs & Symptoms Discharge Data Primary Care Provider: Rickey Daniels Quality VTE Deep Vein Thrombosis/Pulmonary Embolism Present on Admission: No
== END 2022-08-27 12:21 | disposition home or self-care (01) | DRG 177 ==
LOC: ED 16:14 → AC 16:54
PROVIDERS: Family Medicine; Admitting Provider Family Medicine; Emergency Provider Nurse Practitioner Critical Care Medicine; PCP Family Medicine; Referring Provider Nurse Practitioner Critical Care Medicine; Visit Provider Family Medicine
DX: U07.1 COVID-19 (principal); J96.01 Acute respiratory failure with hypoxia; B97.89 Other viral agents as the cause of diseases classified elsewhere; J44.9 Chronic obstructive pulmonary disease, unspecified; E11.9 Type 2 diabetes mellitus without complications; I10 Essential (primary) hypertension; E78.5 Hyperlipidemia, unspecified; I48.91 Unspecified atrial fibrillation; F32.9 Major depressive disorder, single episode, unspecified; G47.33 Obstructive sleep apnea (adult) (pediatric); Z66 Do not resuscitate; Z87.891 Personal history of nicotine dependence; Z79.01 Long term (current) use of anticoagulants; Z79.4 Long term (current) use of insulin
CPT/HCPCS: 36415; 71046; 80048; 80053; 82550; 82553; 82962; 83605; 83880; 84145; 84484; 85025; 86140; 87040; 87633; 87635; 93005; 93010; 94618; 94640; 94660; 94760; 94762; 99285; C9803; J1815; J1940; J2405; J7613

== ENCOUNTER → 2023-12-25 08:02 | Outpatient (CLI) | payer MEDICARE, OTHER, SELFPAY ==
[2022-08-24 16:57] VITALS: BMI 37.1
[2023-12-25 10:00] LABS: Glucose 144 mg/dL (80-110)
[2023-12-26 07:39] LABS: C Peptide 2.3 ng/mL (1.1-4.4)
== END ==
PROVIDERS: PCP Family Medicine; Referring Provider Student in an Organized Health Care Education/Training Program; Visit Provider Student in an Organized Health Care Education/Training Program
DX: E11.69 Type 2 diabetes mellitus with other specified complication (principal)
CPT/HCPCS: 36415; 82947; 84681

== ENCOUNTER → 2025-01-19 07:43 | Outpatient (CLI) | payer MEDICARE, OTHER, SELFPAY ==
[2022-08-24 16:57] VITALS: BMI 37.1
--- NOTE | 2025-01-19 07:44 | DI.US.S_ITS ---
PROCEDURE: US ABDOMEN LIMITED INDICATIONS: RIGHT ABDOMINAL WALL LUMP TECHNIQUE: Real-time focused scanning was performed of the abdomen, with image documentation. COMPARISON: None. FINDINGS AND IMPRESSION: At the area of clinical concern, hypoechoic complex lesion is seen, with posterior acoustic heterogeneous enhancement, measuring 6.7 x 6.7 cm. Differential includes a hematoma. If there is no history of trauma, a solid cystic lesion is also possible. Recommend surveillance imaging to resolution. If persistent, sampling could be obtained. Dictated by: Heri Ramires M.D. on 01/19/2025 at 9:10 Approved by: Heri Ramires M.D. on 01/19/2025 at 9:11
== END ==
LOC: US 07:44
PROVIDERS: Family Provider Family Medicine; PCP Family Medicine; Referring Provider Family Medicine; Visit Provider Family Medicine
DX: R19.03 Right lower quadrant abdominal swelling, mass and lump (principal)
CPT/HCPCS: 76705